=== PATIENT | female | born 1935 | race Caucasian/White ===

== ENCOUNTER 2018-08-04 16:37 | Inpatient (IN) ==
[2018-08-04 17:18] LABS: Basophils # 0.1 K/mcL (0.0-0.2); Basophils % 0.6 %; Eosinophils # 0.2 K/mcL (0.0-0.6); Hematocrit 40.6 % (35.3-44.9); Hemoglobin 13.1 g/dL (11.5-15.4); Immature Granulocytes % 0.7 % (0-4); Lymphocytes # 3.3 K/mcL (0.6-4.6); Lymphocytes % 36.7 %; Mean Corpuscular HGB Conc 32.3 g/dL (31.6-35.5); Mean Corpuscular Hemoglobin 30.2 pg (28.0-33.3); Mean Corpuscular Volume 93.5 fL (83.0-100.0); Mean Platelet Volume 10.4 fL (9.4-12.4); Monocytes # 0.6 K/mcL (0.0-1.3); Monocytes % 6.9 %; Neutrophils # 4.7 K/mcL (1.6-8.9); Platelet Count 413 K/mcL (140-400); Red Blood Count 4.34 M/mcL (3.82-4.97); Red Cell Distribution Width 13.8 % (11.5-14.5); Segmented Neutrophils % 53.1 %
--- NOTE | 2018-08-04 17:27 | Emergency Department Note ---
Disposition Clinical Impression: Third degree heart block, Bradycardia Disposition: Admitted As Inpatient Condition: Fair Referrals: Jose Enrique Collier MD [Primary Care Provider] - Forms: ED Satisfaction Letter General Adult HPI - General Chief complaint: ED Arrhythmia/Palpitations Stated complaint: low heart rate Time Seen by Provider: 08/04/18 16:49 Source: patient, EMS Limitations: no limitations - History of Present Illness Pain Scale: 0 - Related Data Home Medications Medication Instructions Recorded Confirmed ALPRAZolam [Xanax 0.5 MG Tablet] 0.5 tab PO HS PRN 08/04/18 08/04/18 Amitriptyline [Elavil] 25 - 50 mg PO HS 08/04/18 08/04/18 Aspirin Enteric Coated [Aspirin EC] 81 mg PO DAILY 08/04/18 08/04/18 Atenolol [Tenormin] 50 mg PO BID 08/04/18 08/04/18 Biotin 10 mg PO DAILY 08/04/18 08/04/18 Calcium/Magnesium/Zinc 1 tab PO DAILY 08/04/18 08/04/18 [Mrdzjmv-Qatwbhodt-Mcfg Tab] Cyanocobalamin (Vitamin B-12) 1,000 mcg PO DAILY 08/04/18 08/04/18 [Vitamin B12] Furosemide [Lasix] 20 mg PO DAILY PRN 08/04/18 08/04/18 Gabapentin [Neurontin] 600 mg PO HS 08/04/18 08/04/18 HYDROcodone/Acet 5/325 mg [[place] 1 tab PO Q6H PRN 08/04/18 08/04/18 5-325 mg] Potassium Chloride [Klor-Con 10] 10 meq PO DAILY 08/04/18 08/04/18 Simvastatin [Zocor] 20 mg PO HS 08/04/18 08/04/18 hydroCHLOROthiazide 25 mg PO DAILY 08/04/18 08/04/18 [Hydrochlorothiazide] Allergies Allergy/AdvReac Type Severity Reaction Status Date / Time naproxen Allergy Gastrointestinal Verified 10/18/16 13:30 Upset Past Medical History - Past Medical History Medical history: Reports: arthritis, diabetes, hyperlipidemia, hypertension 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 history - Social History Smoking Status: Never smoker Smokeless Tobacco Status: No Alcohol use: Reports: none Drug use: Reports: none Physical Exam - General Limitations: no limitations General appearance: alert, in no apparent distress Course Vital Signs Temperature 98.3 F 08/04/18 16:42 Pulse Rate 31 08/04/18 16:42 Respiratory Rate 16 08/04/18 16:42 Blood Pressure 153/92 08/04/18 16:42 O2 Sat by Pulse Oximetry 100 08/04/18 16:42 Temperature 98.3 F 08/04/18 16:42 Pulse Rate 31 08/04/18 18:00 Respiratory Rate 16 08/04/18 18:00 Blood Pressure 122/76 08/04/18 18:00 O2 Sat by Pulse Oximetry 97 08/04/18 18:00 Oxygen Delivery Oxygen Delivery Room Air Medical Decision Making - Lab Data Result diagrams: 08/04/18 16:45 08/04/18 16:45 Lab Results 08/04/18 08/04/18 Range/Units 16:45 16:45 WBC 8.9 (4.3-11.1) K/mcL RBC 4.34 (3.82-4.97) M/mcL Hgb 13.1 (11.5-15.4) g/dL Hct 40.6 (35.3-44.9) % MCV 93.5 (83.0-100.0) fL MCH 30.2 (28.0-33.3) pg MCHC 32.3 (31.6-35.5) g/dL RDW 13.8 (11.5-14.5) % Plt Count 413 H (140-400) K/mcL MPV 10.4 (9.4-12.4) fL Immature Gran % 0.7 (0-4) % Seg Neutrophils % 53.1 % Lymphocytes % 36.7 % Monocytes % 6.9 % Eosinophils % 2.0 % Basophils % 0.6 % Neutrophils # 4.7 (1.6-8.9) K/mcL Lymphocytes # 3.3 (0.6-4.6) K/mcL Monocytes # 0.6 (0.0-1.3) K/mcL Eosinophils # 0.2 (0.0-0.6) K/mcL Basophils # 0.1 (0.0-0.2) K/mcL Sodium 140 (136-145) mEq/L Potassium 3.6 (3.5-5.1) mEq/L Chloride 103 (98-107) mEq/L Carbon Dioxide 29 (23-29) mEq/L BUN 21 (8-23) mg/dL Creatinine 1.40 H (0.60-1.20) mg/dL Est GFR ( Amer) 44 L (> 60) Est GFR (Non-Af Amer) 36 L (> 60) BUN/Creatinine Ratio 15 (6-26) Glucose 103 (70-105) mg/dL Calculated Osmolality 293 (280-300) Calcium 10.5 H (8.6-10.3) mg/dL Magnesium 2.1 (1.6-2.6) mg/dL Troponin I < 0.03 (< 0.04) ng/mL Critical Care Time Critical Care Time: Yes Total Critical Care Time: 30 Attestation: CC time spent in medical management of severe bradycardia; 3rd degree av block Attestation Statement - Attestation Attestation: I examined this patient and my medical decision-making was reviewed with the Resident Physician. I agree with the documented findings, disposition and treatment plan as described except to the extent set forth below. 83-year-old female in presented to the emergency room for bradycardia. She was being seen by her family doctor for possible ear problems in which she noted her heart rate to be low in the 30s. She was sent to the ER for evaluation. She is asymptomatic other than she said some dizziness the past few days and which she attributed it to her ears. She denies chest pain. No shortness of breath. No vomiting. She denies any history of coronary disease or any cardiac problems. It was found that she was in a third-degree block. Her blood pressures were normal below. We consulted with interventional cardiology. Since she was asymptomatic they are okay with admitting her to the hospitalist and observing her. We have placed her on the pacer pads. Her blood pressures again are normal and she is asymptomatic.
--- NOTE | 2018-08-04 17:34 | Emergency Department Note ---
Disposition Clinical Impression: Third degree heart block, Bradycardia Disposition: Admitted As Inpatient Condition: Fair Referrals: Jose Enrique Collier MD [Primary Care Provider] - Forms: ED Satisfaction Letter General Adult HPI - General Chief complaint: ED Arrhythmia/Palpitations Stated complaint: low heart rate Time Seen by Provider: 08/04/18 16:49 Source: patient, EMS Mode of arrival: ambulatory Limitations: no limitations Nursing Notes Reviewed: Yes Vital Signs Reviewed: Yes - History of Present Illness HPI Narrative: 83-year-old female presents to the emergency department coming from her primary care physician after she went there for looking her ears having ear pain. From the primary care physician andwas very bradycardic so they sent her here for further evaluation. Patient is asymptomatic she says she has had some dizziness off and on for the previous 2 days but not currently having any at this time. Says she only thing she was having was ear pain was worried she had an ear infection. Patient otherwise is healthy. She does take atenolol for blood pressure 500 mg twice a day. Patient otherwise has no complaints. Patient states she has never been told that she has bradycardia. She says that she has been taking her medications rarely did not take any extra. Patient otherwise has no complaints including headaches, blurry vision, neck pain, back pain, chest pain, shortness of breath, abdominal pain, changes in bowel movements, pain with urination, pain or tingling of the arms or legs, denies weakness, fevers, nausea, vomiting Pain Scale: 0 - Related Data Home Medications Medication Instructions Recorded Confirmed ALPRAZolam [Xanax 0.5 MG Tablet] 0.5 tab PO HS PRN 08/04/18 08/04/18 Amitriptyline [Elavil] 25 - 50 mg PO HS 08/04/18 08/04/18 Aspirin Enteric Coated [Aspirin EC] 81 mg PO DAILY 08/04/18 08/04/18 Atenolol [Tenormin] 50 mg PO BID 08/04/18 08/04/18 Biotin 10 mg PO DAILY 08/04/18 08/04/18 Calcium/Magnesium/Zinc 1 tab PO DAILY 08/04/18 08/04/18 [Zbhckov-Fbaublylb-Xgxm Tab] Cyanocobalamin (Vitamin B-12) 1,000 mcg PO DAILY 08/04/18 08/04/18 [Vitamin B12] Furosemide [Lasix] 20 mg PO DAILY PRN 08/04/18 08/04/18 Gabapentin [Neurontin] 600 mg PO HS 08/04/18 08/04/18 HYDROcodone/Acet 5/325 mg [[place] 1 tab PO Q6H PRN 08/04/18 08/04/18 5-325 mg] Potassium Chloride [Klor-Con 10] 10 meq PO DAILY 08/04/18 08/04/18 Simvastatin [Zocor] 20 mg PO HS 08/04/18 08/04/18 hydroCHLOROthiazide 25 mg PO DAILY 08/04/18 08/04/18 [Hydrochlorothiazide] Allergies Allergy/AdvReac Type Severity Reaction Status Date / Time naproxen Allergy Gastrointestinal Verified 10/18/16 13:30 Upset All systems ED: reviewed and negative except as stated. Review of Systems: As Per HPI Past Medical History - Past Medical History Attestation: Yes The following information was validated with the patient. 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 LICENSE CLERK history - Social History Smoking Status: Never smoker Smokeless Tobacco Status: No Alcohol use: Reports: none Drug use: Reports: none Physical Exam - General Limitations: no limitations General appearance: alert, in no apparent distress - Head Head exam: atraumatic, normocephalic, normal inspection - Eye Eye exam: Present: normal appearance, PERRL, EOMI - ENT ENT exam: normal exam, normal oropharynx, mucous membranes moist - Neck Neck exam: Present: normal inspection, full ROM, trachea midline - Chest Chest inspection: Present: normal inspection, symmetric chest wall rise - Respiratory Respiratory exam: Present: normal lung sounds bilaterally - Cardiovascular Cardiovascular exam: Present: normal rhythm, bradycardia, normal heart sounds - Abdominal Exam Abdominal exam: Present: soft, Non-Tender, normal bowel sounds. Absent: tenderness, distention, guarding, rebound, rigidity - Extremities Exam Extremities exam: Present: normal inspection, full ROM. Absent: tenderness, pedal edema - Back Exam Back exam: Present: normal inspection, full ROM. Absent: tenderness, CVA tenderness (R), CVA tenderness (L) - Neurological Exam Neurological exam: Present: alert, oriented X3 - Skin Skin exam: Present: warm, dry, intact, normal color Course Course Narrative: 83-year-old female presents to the emergency department with asymptomatic bradycardia. Will get stat EKG as well as basic labs including CBC, BMP, troponin as well as chest x-ray. Patient is stable at this time. - Consultations Consultation #1: Patient's EKG did show a third-degree block. I consult with the behavioral intervention specialist Dr. Guzman who said if patient is stable there is no intervention to be done now. He recommended stopping the atenolol and if patient becomes hypotensive to give dopamine and to watch the patient closely. An recommended admission. Time: 17:15 Consultation #2: Spoke with the on-call supervisor braiding Dr. Leo who agreed patient does need any intervention at this night did recommend echocardiogram in the morning. As well as keeping patient nothing by mouth as possible defibrillator or pacemaker be placed in the morning. Time: 17:57 Vital Signs Temperature 98.3 F 08/04/18 16:42 Pulse Rate 31 08/04/18 16:42 Respiratory Rate 16 08/04/18 16:42 Blood Pressure 153/92 08/04/18 16:42 O2 Sat by Pulse Oximetry 100 08/04/18 16:42 Temperature 98.3 F 08/04/18 16:42 Pulse Rate 31 08/04/18 18:00 Respiratory Rate 16 08/04/18 18:00 Blood Pressure 122/76 08/04/18 18:00 O2 Sat by Pulse Oximetry 97 08/04/18 18:00 Oxygen Delivery Oxygen Delivery Room Air Medical Decision Making - MDM Narrative Medical decision making narrative: 83-year-old female presented to the emergency department with bradycardia. After getting the EKG she did have a third-degree heart block. Patient was completely asymptomatic she had a normal blood pressure and very stable. Patient states she has infection needs to be here. Physical exam had no acute findings. We did not give any interventions the patient. I mealy called the behavioral intervention specialist Dr. Guzman who said there is nothing that he needs to be now in the catheter lab. He did not feel like we needed pacer. I did consult cardiology and they will see the patient when patient admitted to the floor. Patient is admitted to Dr. Dominguez we will keep the patient nothing by mouth and do an echocardiogram in the morning. All patient's labs are normal and are within normal limits patient had mild acute kidney injury with an elevated creatinine compared to last. Troponin negative. We will continue to watch it at this time. Magnesium was normal. Patient is stable at this time. Admitted Chest X-Ray 08/04/18 17:01 IMPRESSION: Cardiomegaly and chronic interstitial change with no acute finding in the chest. D/ / Zuhair Baker MD / Zuhair Baker MD Interpreting Provider: Zuhair Baker MD - Medical Records Medical records reviewed: Yes I reviewed the patient's medical records. - Lab Data Lab results reviewed: Yes I reviewed the patient's lab results. Result diagrams: 08/04/18 16:45 08/04/18 16:45 Lab Results 08/04/18 08/04/18 Range/Units 16:45 16:45 WBC 8.9 (4.3-11.1) K/mcL RBC 4.34 (3.82-4.97) M/mcL Hgb 13.1 (11.5-15.4) g/dL Hct 40.6 (35.3-44.9) % MCV 93.5 (83.0-100.0) fL MCH 30.2 (28.0-33.3) pg MCHC 32.3 (31.6-35.5) g/dL RDW 13.8 (11.5-14.5) % Plt Count 413 H (140-400) K/mcL MPV 10.4 (9.4-12.4) fL Immature Gran % 0.7 (0-4) % Seg Neutrophils % 53.1 % Lymphocytes % 36.7 % Monocytes % 6.9 % Eosinophils % 2.0 % Basophils % 0.6 % Neutrophils # 4.7 (1.6-8.9) K/mcL Lymphocytes # 3.3 (0.6-4.6) K/mcL Monocytes # 0.6 (0.0-1.3) K/mcL Eosinophils # 0.2 (0.0-0.6) K/mcL Basophils # 0.1 (0.0-0.2) K/mcL Sodium 140 (136-145) mEq/L Potassium 3.6 (3.5-5.1) mEq/L Chloride 103 (98-107) mEq/L Carbon Dioxide 29 (23-29) mEq/L BUN 21 (8-23) mg/dL Creatinine 1.40 H (0.60-1.20) mg/dL Est GFR ( Amer) 44 L (> 60) Est GFR (Non-Af Amer) 36 L (> 60) BUN/Creatinine Ratio 15 (6-26) Glucose 103 (70-105) mg/dL Calculated Osmolality 293 (280-300) Calcium 10.5 H (8.6-10.3) mg/dL Magnesium 2.1 (1.6-2.6) mg/dL Troponin I < 0.03 (< 0.04) ng/mL - Radiology Data Radiology results reviewed: Yes I reviewed the patient's radiology results. - EKG Data EKG #1 EKG attestation: Yes I reviewed and interpreted this EKG. EKG results narrative: EKG done at 1650 review myself and the attending shows third-degree heart block at a rate of 31, QRS 126, QTC 403 leftward axis. There is no acute ST changes no acute T-wave changes no other signs of ischemia. There is a right bundle- branch block and a third-degree AV block. No other blocks. No heartstring, hypertrophy. No WPW/Brugada/HOCM. No old EKG to compare with
[2018-08-04 17:38] LABS: BUN/Creatinine Ratio 15 (6-26); Blood Urea Nitrogen 21 mg/dL (8-23); Calcium 10.5 mg/dL (8.6-10.3); Carbon Dioxide 29 mEq/L (23-29); Chloride 103 mEq/L (98-107); Glucose 103 mg/dL (70-105); Magnesium 2.1 mg/dL (1.6-2.6); Osmolality,Calculated 293 (280-300); Potassium 3.6 mEq/L (3.5-5.1); Sodium 140 mEq/L (136-145); eGFR For Non-African Americans 36 (> 60)
[2018-08-04 17:39] LABS: Troponin I < 0.03 ng/mL (< 0.04)
[2018-08-04] MEDS ORDERED: Naloxone 0.4 MG/ML INJ IVP PRN (18:48)
[2018-08-04] MEDS ORDERED: ALPRAZolam 0.5 MG TABLET PO PRN (18:51)
[2018-08-04] MEDS ORDERED: 0.9 % Sodium Chloride 1,000 ML IVC SCH (19:00)
--- NOTE | 2018-08-04 19:01 | Internal Med History&Physical ---
Date of Encounter: 08/04/18 Time of Encounter: 18:56 Internal Medicine - H&P: HPI Chief complaint: Severe bradycardia Admitted From: Home Plans for Post Hospital Care: Home History of present illness: The patient is an 83-year-old woman. She has been fighting with cold-like symptoms for the last 5 days. It started from nasal congestion and sore throat. Then, she developed coughing and aching in her ears and behind her right eyeball. She visited her primary care physician today morning, complaining of persistent aching in her ears. The examination did not reveal any problems in her ears. When checking her vitals, they found her to be very bradycardic with heart rate at the low 30s. Evaluation in the emergency department revealed third degree AV block with heart rate of 31. This patient has been taking atenolol at 50 mg by mouth twice a day for treatment of high blood pressure. She has recently developed mild renal failure. Her creatinine from today is 1.40; it was 1.04 on 03/02/18. The patient did have some off and on dizziness when doing her daily activities in the last 2 days. Denies chest pain. Denies abdominal pain, nausea and vomiting. She makes good amounts of urine. She has been treated for hypertension, hyperlipidemia and anxiety. She had low back surgery several years ago. She continues to have low back pain with radiation to posterior aspects of her thighs. REVIEW OF SYSTEMS: All 14 organ systems were reviewed by me with the patient. Positive and pertinent negative findings are listed above. The rest of organ systems is negative. PHYSICAL EXAM: Skin: Free of rash and discoloration. Eyes: Sclera is white. There is no discharge from eyes. ENMT: Oral/pharyngeal mucosa is normal in appearance. There is no discharge from nose or ears. Respiratory: Normal breath sounds with no crackles and wheezes bilaterally. CV: Heart is regular with no gallop or murmur. GI: Abdomen is flat and soft with no palpable mass or visceromegaly. : There is no tenderness in patient's flanks bilaterally. Neuro exam: He has good strength in upper and lower extremities. He has normal eye movements. Psychiatric: He has normal affect. His thought process is appropriate to the situation. EKG shows third-degree AV block with heart rate of 31. Her CBC is normal. Her biochemistry panel shows creatinine of 1.40 (1.04 in Danielle of this year). She has sodium of 140 and potassium 3.6. Magnesium is 2.1. Troponin is normal. A/P: Third-degree AV block with bradycardialow 30s. Likely secondary to atenolol on top of recently developed renal failure. Cardiology is consulted. We will continue 24-hour cardiac monitoring. The patient will be nothing by mouth, as she may need a pacemaker. We will give her normal saline with addition of potassium chloride. She has mild hypokalemia. Upper respiratory tract infection. Subsiding. No treatment is needed at this time. Her other problems are mentioned by me above. They seem to be stable/under control. Past Med Surg Social Fam HX - Past Medical History Medical history: arthritis, diabetes, hyperlipidemia, hypertension - Social History Smoking Status: Never smoker Smokeless Tobacco Status: No Alcohol use: none Drug use: none - Family History Mother Living Status: Age at : 74 Hx Family Cardiac Disorders: Yes Internal Medicine - H&P: Meds ALPRAZolam [Xanax 0.5 MG Tablet] 0.5 tab PO HS PRN 08/04/18 [History] Amitriptyline [Elavil] 25 - 50 mg PO HS 08/04/18 [History] Aspirin Enteric Coated [Aspirin EC] 81 mg PO DAILY 08/04/18 [History] Atenolol [Tenormin] 50 mg PO BID 08/04/18 [History] Biotin 10 mg PO DAILY 08/04/18 [History] Calcium/Magnesium/Zinc [Svpgxmc-Voiuwidyz-Ugge Tab] 1 tab PO DAILY 08/04/18 [ History] Cyanocobalamin (Vitamin B-12) [Vitamin B12] 1,000 mcg PO DAILY 08/04/18 [History ] Furosemide [Lasix] 20 mg PO DAILY PRN 08/04/18 [History] Gabapentin [Neurontin] 600 mg PO HS 08/04/18 [History] HYDROcodone/Acet 5/325 mg [[place] 5-325 mg] 1 tab PO Q6H PRN 08/04/18 [History] Potassium Chloride [Klor-Con 10] 10 meq PO DAILY 08/04/18 [History] Simvastatin [Zocor] 20 mg PO HS 08/04/18 [History] hydroCHLOROthiazide [Hydrochlorothiazide] 25 mg PO DAILY 09/26/18 [History] 3 Allergy/AdvReac Type Severity Reaction Status Date / Time naproxen Allergy Gastrointestinal Verified 10/18/16 13:30 Upset - Constitutional Vitals: Temp Pulse Resp BP Pulse Ox 98.3 F 31 16 122/76 97 08/04/18 16:42 08/04/18 18:00 08/04/18 18:00 08/04/18 18:00 08/04/18 18:00 General appearance: Present: A&O X 3, no acute distress, answers questions appropriately Exam: xx Internal Med - H&P Results - Labs CBC & Chem 7: 08/04/18 16:45 08/04/18 16:45 Labs: Short CBC 08/04/18 Range/Units 16:45 WBC 8.9 (4.3-11.1) K/mcL Hgb 13.1 (11.5-15.4) g/dL Hct 40.6 (35.3-44.9) % Plt Count 413 H (140-400) K/mcL Neutrophils # 4.7 (1.6-8.9) K/mcL BMP 08/04/18 16:45 Sodium 140 Potassium 3.6 Chloride 103 Carbon Dioxide 29 BUN 21 Creatinine 1.40 H Glucose 103 Calcium 10.5 H Cardiac Enzymes 08/04/18 Range/Units 16:45 Troponin I < 0.03 (< 0.04) ng/mL - Impressions ITS Impressions Chest X-Ray 08/04/18 17:01 IMPRESSION: Cardiomegaly and chronic interstitial change with no acute finding in the chest. D/ / Zuhair Baker MD / Zuhair Baker MD Interpreting Provider: Zuhair Baker MD - Assessment and plan (1) Third degree heart block Current Visit: Yes Status: Acute (2) ALIDA (acute kidney injury) Current Visit: Yes Status: Acute (3) Hypokalemia Current Visit: Yes Status: Acute (4) HTN (hypertension) Current Visit: Yes Status: Acute Qualifiers: Hypertension type: essential hypertension Qualified Code(s): I10 - Essential (primary) hypertension - Time Spent With Patient Total time spent is greater than 50% in coordination of care (as documented) at patient's floor/unit and/or counseling patient: 25 - 35 minutes - VTE Reasons for not Prescribing Prophylaxis: Treatment not Indicated - Low risk for VTE Deep Vein Thrombosis/Pulmonary Embolism Present on Admission: No
[2018-08-04] MEDS: Gabapentin 300 MG CAPSULE PO SCH (23:07)
[2018-08-04] MEDS: 0.9 % Sodium Chloride w KCl 20 MEQ/1,000 ML MLS IVC SCH (23:08)
[2018-08-05 05:00] LABS: Basophils % 0.5 %; Eosinophils # 0.2 K/mcL (0.0-0.6); Eosinophils % 2.2 %; Hematocrit 36.1 % (35.3-44.9); Hemoglobin 11.8 g/dL (11.5-15.4); Immature Granulocytes % 0.6 % (0-4); Lymphocytes # 2.7 K/mcL (0.6-4.6); Lymphocytes % 34.4 %; Mean Corpuscular HGB Conc 32.7 g/dL (31.6-35.5); Mean Corpuscular Hemoglobin 30.3 pg (28.0-33.3); Mean Corpuscular Volume 92.8 fL (83.0-100.0); Mean Platelet Volume 10.3 fL (9.4-12.4); Monocytes # 0.7 K/mcL (0.0-1.3); Monocytes % 9.1 %; Neutrophils # 4.2 K/mcL (1.6-8.9); Platelet Count 344 K/mcL (140-400); Red Blood Count 3.89 M/mcL (3.82-4.97); Red Cell Distribution Width 13.9 % (11.5-14.5); Segmented Neutrophils % 53.2 %
[2018-08-05 05:13] LABS: BUN/Creatinine Ratio 18 (6-26); Blood Urea Nitrogen 17 mg/dL (8-23); Carbon Dioxide 28 mEq/L (23-29); Chloride 107 mEq/L (98-107); Glucose 90 mg/dL (70-105); Osmolality,Calculated 291 (280-300); Potassium 3.8 mEq/L (3.5-5.1); Sodium 140 mEq/L (136-145); eGFR For Non-African Americans 56 (> 60)
--- NOTE | 2018-08-05 11:05 | Cardiology Consult Note ---
<Shellie Barbour - Last Filed: 08/05/18 12:39> Date of Encounter: 08/05/18 Time of Encounter: 09:00 Assessment and Plan (1) Bradycardia Current Visit: Yes Status: Acute Per cardiology: -ADmitted with bradycardia, 2:1 AV block. -Average HR previous 12 hours noted to be 34. BP stable. Alert and oriented. -Was on atenolol at home, last dose 08/04/18 am. -Also noted, ALIDA. -Agree with holding AV michel blockers. -Will check TTE. -Will check TSH. -Will continue to monitor, at this time, no urgent need for pacemaker. (2) ALIDA (acute kidney injury) Current Visit: Yes Status: Acute Per cardiology: -ALIDA noted on admission, improving. -Management per primary service. Discussion w patient/family: The assessment and plan as outlined above was discussed with the patient and/or family members who expressed understanding and agreement. All questions were answered. Thank you for involving us in the care of your patient. Please call with any questions. Discussed and reviewed with . History of Present Illness Consult date: 08/04/18 Requesting physician: Marbin Lindquist Consult reason: bradycardia Chief complaint: low HR History of present illness: Ms. George is a 83 year old female with a relevant past medical history of HTN, anxiety, HLD who presented to [facility] as recommended by her PCP for low HR. Patient reports for the past week has had a cough, congestion. Patient also reports has not been eating and drinking as well as normal. Patient states she has been trying to drink fluids. Patient reports she went to her PCP yesterday for her cough, cold, ear pain and PCP noted HR low and recommended ER evaluation. Patient denies dizziness, ligthheadedness, syncope, or near syncope. Patient reports on Thursday, was able to clean her entire house and do all her laundry without symptoms. Patient currently alert and oriented, sitting in bed. Denies complaints. Past Med Surg Social Fam HX - Past Medical History Attestation: Yes The following information was validated with the patient. Source: patient, old records reviewed, obtained from family Medical history: arthritis, diabetes, hyperlipidemia, hypertension - Past Surgical History Surgical History: knee replacement, other Additional surgical history: Back surgery, has screws placed in 2012, also has a pessery, was clean on 07/27/18. - Social History Smoking Status: Never smoker Smokeless Tobacco Status: No Alcohol use: none Drug use: none - Family History Mother Living Status: Age at : 74 Hx Family Cardiac Disorders: Yes Medications and Allergies ALPRAZolam [Xanax 0.5 MG Tablet] 0.5 tab PO HS PRN 08/04/18 [History] Amitriptyline [Elavil] 25 - 50 mg PO HS 08/04/18 [History] Aspirin Enteric Coated [Aspirin EC] 81 mg PO DAILY 08/04/18 [History] Atenolol [Tenormin] 50 mg PO BID 08/04/18 [History] Biotin 10 mg PO DAILY 08/04/18 [History] Calcium/Magnesium/Zinc [Xnsiano-Gbcrbhwsj-Ldul Tab] 1 tab PO DAILY 08/04/18 [ History] Cyanocobalamin (Vitamin B-12) [Vitamin B12] 1,000 mcg PO DAILY 08/04/18 [History ] Furosemide [Lasix] 20 mg PO DAILY PRN 08/04/18 [History] Gabapentin [Neurontin] 600 mg PO HS 08/04/18 [History] HYDROcodone/Acet 5/325 mg [[place] 5-325 mg] 1 tab PO Q6H PRN 08/04/18 [History] Potassium Chloride [Klor-Con 10] 10 meq PO DAILY 08/04/18 [History] Simvastatin [Zocor] 20 mg PO HS 08/04/18 [History] hydroCHLOROthiazide [Hydrochlorothiazide] 25 mg PO DAILY 08/04/18 [History] 3 Allergy/AdvReac Type Severity Reaction Status Date / Time naproxen Allergy Gastrointestinal Verified 10/18/16 13:30 Upset All Systems Review: The remainder of the systems were reviewed and are negative - Cardiovascular Cardiovascular: as per HPI, slow heart rate - Respiratory Respiratory: cough Physical Examination Vital Signs Temperature 98.3 F 08/04/18 16:42 Pulse Rate 31 08/04/18 16:42 Respiratory Rate 16 08/04/18 16:42 Blood Pressure 153/92 08/04/18 16:42 O2 Sat by Pulse Oximetry 100 08/04/18 16:42 Temperature 97.6 F 08/05/18 06:58 Pulse Rate 39 08/05/18 06:58 Respiratory Rate 16 09/27/18 06:58 Blood Pressure 153/84 08/05/18 06:58 O2 Sat by Pulse Oximetry 95 08/05/18 06:58 Oxygen Delivery Oxygen Delivery Nasal Cannula General: Conversant, No Apparent Distress HEENT: Atraumatic, Normocephaly, Mucus Membranes Moist Neck: No JVD, Normal carotid pulses Cardiac: Normal S1 and S2, No Murmur, Other (Bradycardic. ) Lungs: Normal Breath Sounds, No Wheeze, Rales, Rhonchi Neuro: Alert and responsive, No focal deficits noted Abdomen: Soft, Non-Tender Skin: No rashes noted on visualized skin Musculoskeletal: No Chest Wall Tenderness Extremities: No Clubbing, No Cyanosis, No Edema, Normal Pulses Results 08/05/18 04:19 08/05/18 04:19 Lab Results Impressions Chest X-Ray 08/04/18 17:01 IMPRESSION: Cardiomegaly and chronic interstitial change with no acute finding in the chest. D/ / Zuhair Baker MD / Zuhair Baker MD Interpreting Provider: Zuhair Baker MD Active Medications Hydrocodone Bitart/Acetaminophen ([place] 5-325 Mg) 1 tab PO Q6H PRN PRN Reason: Pain Stop: 02/03/19 18:52 Alprazolam (Xanax) 0.5 mg PO HS PRN; Protocol PRN Reason: Sleep Stop: 02/03/19 18:52 Amitriptyline HCl (Elavil) 25 mg PO HS DAVIAN Stop: 02/03/19 21:01 Last Admin: 08/04/18 23:07 Dose: 25 mg Aspirin (Aspirin Ec) 81 mg PO DAILY DAVIAN Stop: 02/04/19 09:01 Last Admin: 08/05/18 11:11 Dose: 81 mg Gabapentin (Neurontin) 600 mg PO HS DAVIAN Stop: 02/03/19 21:01 Last Admin: 08/04/18 23:07 Dose: 600 mg Hydrochlorothiazide (Hydrochlorothiazide) 25 mg PO DAILY DAVIAN PRN Reason: Protocol Stop: 02/04/19 09:01 Last Admin: 08/05/18 11:11 Dose: 25 mg Potassium Chloride/Sodium Chloride (Kcl 20 Meq In 0.9% Sodium Chloride) 20 meq in 1,000 mls @ 75 mls/hr IVC .[id number] DAVIAN Stop: 08/05/18 21:54 Last Admin: 08/04/18 23:08 Dose: 75 mls/hr Naloxone HCl (Narcan) 0.4 mg IVP Q2MIN PRN PRN Reason: SEE COMMENTS Stop: 02/03/19 18:49 Simvastatin (Zocor) 20 mg PO HS DAVIAN PRN Reason: Protocol Stop: 02/03/19 21:01 Last Admin: 08/04/18 23:07 Dose: 20 mg Laboratory Tests 08/04/18 08/05/18 08/05/18 16:45 04:19 04:19 Hgb 11.8 Potassium 3.8 Creatinine 1.40 H 0.96 Magnesium 2.1 Troponin I < 0.03 - Imaging and Cardiology Chest Xray: report reviewed Echo: pending - EKG Interpretation EKG results cardiology: personally reviewed (ECG with bradycardia, HR 38, 2:1 AV block.), other (Telemetry reviewed with average HR previous 12 hours noted to be 34.) Consult Discharge Plan - Plan Referrals: Jose Enrique Collier MD [Primary Care Provider] - <Kitty Leo - Last Filed: 08/05/18 16:44> Date of Encounter: 08/05/18 - Attending Attestation Patient was seen and evaluated independently by me. Findings, assessment and plan were discussed at length with patient, questions answered. Agree with nurse practitioner's documentation. Addition as follows, Consulted for CHB. 83 yoCF on longstanding atenolol and amitriptylin with ho HTN. P/w 1 wk URI c/b ALIDA likely due to poor po intake. Asymptomatic CV stand of point. Hypertensive. No JVD, CTA, no M/G/R, no LE edema ECG-Tele: CHB junctional w RBBB-> 2:1 AVB VR high 30s -40s with ALIDA improves on IVF, holding BB and amitriptylin. A: Intermittent CHB and high grade AVB etiology AVN blockers toxicity with ALIDA vs primary degenerative conduction disease P: - c/w IVF and holding BB and amitriptylin - amlodipine for HTN - if AVB fails to resolve after ALIDA resolution and removing AVN toxin, DC-PPM - pending TTE Kitty Leo MD, PhD Assessment and Plan Discussion w patient/family: The assessment and plan as outlined above was discussed with the patient and/or family members who expressed understanding and agreement. All questions were answered. Thank you for involving us in the care of your patient. Please call with any questions. History of Present Illness History of present illness: Ms. George is a 83 year old female All Systems Review: The remainder of the systems were reviewed and are negative Physical Examination Vital Signs, Last 4 Hours Temp Pulse Resp BP Pulse Ox 08/05/18 15:41 97.9 F 40 16 152/54 95 Results 08/05/18 04:19 08/05/18 04:19 Lab Results 08/05/18 08/05/18 04:19 04:19 WBC 7.8 Hgb 11.8 Hct 36.1 Plt Count 344 Sodium 140 Potassium 3.8 Chloride 107 Carbon Dioxide 28 BUN 17 Creatinine 0.96 Glucose 90 Calcium 10.0 TSH 0.876
[2018-08-05] MEDS: Aspirin Enteric Coated 81 MG Tablet PO SCH (11:11)
[2018-08-05] MEDS: hydroCHLOROthiazide 25 MG TABLET PO SCH (11:11)
[2018-08-05 11:38] LABS: Thyroid Stimulating Hormone 0.876 mcIU/mL (0.340-5.600)
[2018-08-05] MEDS: amLODIPine 5 MG TABLET PO SCH (16:15)
[2018-08-05] MEDS: 0.9 % Sodium Chloride w KCl 20 MEQ/1,000 ML MLS IVC SCH (16:16)
[2018-08-05] MEDS ORDERED: Acetaminophen 325 MG TABLET PO PRN (20:07)
[2018-08-05] MEDS ORDERED: Perflutren Lipid Microsphere 1.3 ML in 0.9 % Sodium Chloride 8.7 ML IVP ONE (20:37)
[2018-08-05] MEDS: Gabapentin 300 MG CAPSULE PO SCH (21:17)
--- NOTE | 2018-08-05 21:41 | Internal Med Progress Note ---
Hospitalist Progress Note - Encounter Date of Encounter: 08/05/18 Time of Encounter: 19:00 - Subjective Interval History: SUBJECTIVE: The patient feels pretty good. Denies chest pain. Denies difficulty breathing , coughing and wheezing. She can walk without the dizziness/lightheadedness. She did have dizzy spells, when walking in the last 2 days preceding this admission. OBJECTIVE: Skin: Free of rash and discoloration. ENMT: Oral/pharyngeal mucosa is normal in appearance. Eyes: Sclera is white. There is no discharge from eyes. Respiratory: Normal breath sounds; no crackles or wheezes. CV: Heart is regular; no gallop or murmur. GI: Abdomen is soft and not tender. There is no palpable mass or visceromegaly. Neuro: There is no focal deficits. ASSESSMENT AND PLAN: Severe bradycardia. It was likely symptomatic in the last 2 days preceding this admission. Her EKG from yesterday shows second-degree AV block with 2:1 conduction. Currently, her heart monitor shows sinus bradycardia or slow junctional rhythm - average heart rate of about 40. We discontinued her atenolol and amitriptyline. We will obtain EKG in the morning. We appreciate help from cardiology. Echocardiogram has been pending. TSH is normal. Acute kidney injury/hypokalemia. Resolved with IV normal saline (with supplemental potassium chloride). Hypertension. Under control. We will continue hydrochlorothiazide. - Exam Vitals: Temp Pulse Resp BP Pulse Ox 97.9 F 40 16 152/54 95 08/05/18 15:41 08/05/18 15:41 08/05/18 15:41 08/05/18 15:41 08/05/18 15:41 Exam: xx - Assessment and Plan (1) Bradycardia Current Visit: Yes Status: Acute (2) ALIDA (acute kidney injury) Current Visit: Yes Status: Acute (3) Hypokalemia Current Visit: Yes Status: Acute (4) HTN (hypertension) Current Visit: Yes Status: Acute - Time Spent with Patient Total time spent is greater than 50% in coordination of care (as documented) at patient's floor/unit and/or counseling patient: 25 - 35 minutes Plan of Care Discussed with: patient Internal Medicine: Result - Labs CBC & Chem 7: 08/05/18 04:19 08/05/18 04:19 Labs: Short CBC 08/05/18 Range/Units 04:19 WBC 7.8 (4.3-11.1) K/mcL Hgb 11.8 (11.5-15.4) g/dL Hct 36.1 (35.3-44.9) % Plt Count 344 (140-400) K/mcL Neutrophils # 4.2 (1.6-8.9) K/mcL BMP 08/05/18 04:19 Sodium 140 Potassium 3.8 Chloride 107 Carbon Dioxide 28 BUN 17 Creatinine 0.96 Glucose 90 Calcium 10.0 - VTE Reasons for not Prescribing Prophylaxis: Treatment not Indicated - Low risk for VTE Deep Vein Thrombosis/Pulmonary Embolism Present on Admission: No Consult Discharge Plan - Plan Referrals: Jose Enrique Collier MD [Primary Care Provider] - (4) HTN (hypertension) Qualifiers: Hypertension type: essential hypertension Qualified Code(s): I10 - Essential (primary) hypertension
[2018-08-06] MEDS: hydroCHLOROthiazide 25 MG TABLET PO SCH (08:51)
[2018-08-06] MEDS: amLODIPine 5 MG TABLET PO SCH (08:52)
[2018-08-06] MEDS: Aspirin Enteric Coated 81 MG Tablet PO SCH (08:53)
[2018-08-06] MEDS: *HR* HYDROcodone/Acet 5/325 mg TABLET PO PRN ×3 (08:54→21:07)
[2018-08-06] MEDS ORDERED: ALPRAZolam 0.5 MG TABLET PO PRN (11:03)
--- NOTE | 2018-08-06 13:30 | Cardiology Progress Note ---
Date of Encounter: 08/06/18 Time of Encounter: 13:00 Assessment and Plan (1) Bradycardia Current Visit: Yes Status: Acute Per cardiology: -ADmitted with bradycardia, 2:1 AV block. -Average HR previous 12 hours noted to be 48, SB with intermittent 2:1 AV block. HR improved from previous. Patient asymptomatic. -Was on atenolol at home, last dose 08/04/18 am. -Also noted, ALIDA. -TTE pending. -TSH within normal limits. -Will continue to monitor, at this time, no urgent need for pacemaker. (2) ALIDA (acute kidney injury) Current Visit: Yes Status: Acute Per cardiology: -ALIDA noted on admission, improving. -Management per primary service. Discussion w patient/family: The assessment and plan as outlined above was discussed with the patient and/or family members who expressed understanding and agreement. All questions were answered. Thank you for involving us in the care of your patient. Please call with any questions. Discussed and reviewed with . Subjective Principal diagnosis: ALIDA, bradycardia Interval history: Patient sitting in chair. Denies complaints. Objective Vital Signs, Last 4 Hours Temp Pulse Resp BP Pulse Ox 08/06/18 10:45 97.3 F L 44 16 138/87 95 General: Conversant, No Apparent Distress HEENT: Atraumatic, Normocephaly, Mucus Membranes Moist Neck: No JVD, Normal carotid pulses Cardiac: Normal S1 and S2, No Murmur, Other (Bradycardic. ) Lungs: Normal Breath Sounds, No Wheeze, Rales, Rhonchi Neuro: Alert and responsive, No focal deficits noted Abdomen: Soft, Non-Tender Skin: No rashes noted on visualized skin Musculoskeletal: No Chest Wall Tenderness Extremities: No Clubbing, No Cyanosis, No Edema, Normal Pulses Results 08/05/18 04:19 08/05/18 04:19 Active Medications Acetaminophen (Tylenol) 650 mg PO Q6HR PRN PRN Reason: Pain Stop: 02/04/19 20:08 Last Admin: 08/05/18 20:52 Dose: 650 mg Hydrocodone Bitart/Acetaminophen ([place] 5-325 Mg) 1 tab PO Q6H PRN PRN Reason: Pain Stop: 02/03/19 18:52 Last Admin: 08/06/18 08:54 Dose: 1 tab Alprazolam (Xanax) 0.5 mg PO Q8H PRN; Protocol PRN Reason: Anxiety Stop: 02/03/19 18:52 Last Admin: 08/06/18 12:22 Dose: 0.5 mg Amlodipine Besylate (Norvasc) 5 mg PO DAILY DAVIAN PRN Reason: Protocol Stop: 02/04/19 14:01 Last Admin: 08/06/18 08:52 Dose: 5 mg Aspirin (Aspirin Ec) 81 mg PO DAILY DAVIAN Stop: 02/04/19 09:01 Last Admin: 08/06/18 08:53 Dose: 81 mg Gabapentin (Neurontin) 600 mg PO HS DAVIAN Stop: 02/03/19 21:01 Last Admin: 08/05/18 21:17 Dose: 600 mg Hydrochlorothiazide (Hydrochlorothiazide) 25 mg PO DAILY DAVIAN PRN Reason: Protocol Stop: 02/04/19 09:01 Last Admin: 08/06/18 08:51 Dose: 25 mg Naloxone HCl (Narcan) 0.4 mg IVP Q2MIN PRN PRN Reason: SEE COMMENTS Stop: 02/03/19 18:49 Simvastatin (Zocor) 20 mg PO HS DAVIAN PRN Reason: Protocol Stop: 02/03/19 21:01 Last Admin: 08/05/18 21:17 Dose: 20 mg Laboratory Tests 08/04/18 08/05/18 08/05/18 16:45 04:19 04:19 Hgb 11.8 Creatinine 1.40 H 0.96 TSH 0.876 - Imaging and Cardiology Chest Xray: report reviewed Echo: pending - EKG Interpretation EKG results cardiology: other (Telemetry reviewed with average HR previous 12 hours noted to be 48, SB with intermittent 2:1 AV block.) - VTE Reasons for not Prescribing Prophylaxis: Treatment not Indicated - Low risk for VTE Deep Vein Thrombosis/Pulmonary Embolism Present on Admission: No Consult Discharge Plan - Plan Referrals: Jose Enrique Collier MD [Primary Care Provider] -
[2018-08-06] MEDS: *HR* Heparin 5,000 UNIT/ML VIAL SQ SCH (17:22)
[2018-08-06] MEDS: Oxymetazoline Nasal SPRAY BOTTLE NS SCH (17:42)
[2018-08-06] MEDS: Gabapentin 300 MG CAPSULE PO SCH (20:09)
--- NOTE | 2018-08-06 22:51 | Internal Med Progress Note ---
Hospitalist Progress Note - Encounter Date of Encounter: 08/06/18 Time of Encounter: 19:00 - Subjective Interval History: SUBJECTIVE: She complains of feeling of water in her ears. It is not pain any more. Denies chest pain. She can walk without the dizziness/lightheadedness. She did have dizzy spells, when walking in the last 2 days preceding this admission. OBJECTIVE: Skin: Free of rash and discoloration. ENMT: Oral/pharyngeal mucosa is normal in appearance. Eyes: Sclera is white. There is no discharge from eyes. Respiratory: Normal breath sounds; no crackles or wheezes. CV: Heart is regular; no gallop or murmur. GI: Abdomen is soft and not tender. There is no palpable mass or visceromegaly. Neuro: There is no focal deficits. ASSESSMENT AND PLAN: Severe bradycardia. It was likely symptomatic in the last 2 days preceding this admission. Her telemetry shows sinus bradycardia/second-degree AV block with 2:1 conduction; average heart rate of 50. Her atenolol and amitriptyline are on hold. We appreciate help from cardiology. Her echocardiogram shows normal findings. TSH is normal. Acute kidney injury/hypokalemia. Resolved with IV normal saline (with supplemental potassium chloride). Hypertension. Under control. We will continue hydrochlorothiazide. Increased pressure in ears secondary to obstruction of eustachian tubes. We will try nasal spray Afrin. - Exam Vitals: Temp Pulse Resp BP Pulse Ox 97.7 F 58 18 148/92 97 08/06/18 20:59 08/06/18 20:59 08/06/18 20:59 08/06/18 20:59 08/06/18 20:59 Exam: xx - Assessment and Plan (1) Bradycardia Current Visit: Yes Status: Acute (2) ALIDA (acute kidney injury) Current Visit: Yes Status: Acute (3) Hypokalemia Current Visit: Yes Status: Acute (4) HTN (hypertension) Current Visit: Yes Status: Acute - Time Spent with Patient Total time spent is greater than 50% in coordination of care (as documented) at patient's floor/unit and/or counseling patient: 25 - 35 minutes Plan of Care Discussed with: patient (and family) Internal Medicine: Result - Labs CBC & Chem 7: 08/05/18 04:19 09/27/18 04:19 - VTE Reasons for not Prescribing Prophylaxis: Treatment not Indicated - Low risk for VTE Deep Vein Thrombosis/Pulmonary Embolism Present on Admission: No Consult Discharge Plan - Plan Referrals: Jose Enrique Collier MD [Primary Care Provider] - (4) HTN (hypertension) Qualifiers: Hypertension type: essential hypertension Qualified Code(s): I10 - Essential (primary) hypertension
[2018-08-07] MEDS: *HR* Heparin 5,000 UNIT/ML VIAL SQ SCH ×2 (05:27→17:53)
[2018-08-07] MEDS: Oxymetazoline Nasal SPRAY BOTTLE NS SCH ×2 (05:27→17:50)
[2018-08-07] MEDS: *HR* HYDROcodone/Acet 5/325 mg TABLET PO PRN ×3 (05:28→19:22)
--- NOTE | 2018-08-07 09:54 | Cardiology Progress Note ---
Date of Encounter: 08/07/18 Time of Encounter: 09:52 Assessment and Plan (1) Bradycardia Current Visit: Yes Status: Acute Amitted with bradycardia, 2:1 AV block. Average HR previous 12 hours noted to be 64, SB with intermittent 2:1 AV block. HR improved from previous. Patient asymptomatic. Was on atenolol at home, last dose 08/04/18 am. Also noted, ALIDA. K, Mag, TSH WNL. TTE--LVEF 60-65%. Mild asymmetric hypertrophy of the basal septum. Mild LVOT obstruction, mean gradient 8 mmHg. Mild LVDD. Atypical septal motion consistent with bundle branch block. Mild MR. Discussed and reviewed with Dr. Leo. Since pt continues to have intermittent 2: 1 AV block after 72 hours of BB washout, recommend pt stay for EP/PPM evaluation on Thursday. Discussed with pt and she is agreeable to stay. (2) ALIDA (acute kidney injury) Current Visit: Yes Status: Acute ALIDA noted on admission, resolved. Management per primary service. Discussion w patient/family: The assessment and plan as outlined above was discussed with the patient and/or family members who expressed understanding and agreement. All questions were answered. Thank you for involving us in the care of your patient. Please call with any questions. I will discuss all the above with Dr. Leo and make changes as necessary. Subjective Principal diagnosis: ALIDA, bradycardia Interval history: Pt denies acute complaints this AM. HR has improved, continues to have intermittent 2:1 AV block on telemetry. Objective Vital Signs, Last 4 Hours Temp Pulse Resp BP Pulse Ox 08/07/18 07:23 97.8 F 46 20 145/70 97 Vital Signs Temp Pulse Resp BP Pulse Ox 08/07/18 07:23 97.8 F 46 20 145/70 97 08/07/18 04:51 97.9 F 51 18 136/69 95 08/07/18 00:51 97.7 F 49 18 146/72 94 08/06/18 20:59 97.7 F 58 18 148/92 97 08/06/18 15:38 50 18 111/95 94 08/06/18 10:45 97.3 F L 44 16 138/87 95 Intake and Output 08/06/18 08/07/18 08/07/18 23:59 07:59 15:59 Intake Total 340 / 340 0 / 0 240 / 240 Output Total 200 / 200 700 / 700 Balance 140 / 140 -700 / -700 240 / 240 Intake: Oral 340 / 340 0 / 0 240 / 240 Output: Urine 200 / 200 700 / 700 Other: Meal Lunch Breakfast Percent of Meal Consumed 100% 100% Stool Size Moderate Stool Consistency soft Stool Color Brown # Voids 0 # Bowel Movements 1 Weight 73.3 kg Patient Weight 08/07/18 23:59 Weight 73.3 kg General: Conversant, No Apparent Distress HEENT: Atraumatic, Normocephaly, Mucus Membranes Moist Neck: No JVD, Normal carotid pulses Cardiac: Reg Rate and Rhythm, Normal S1 and S2, No Murmur Lungs: Normal Breath Sounds, No Wheeze, Rales, Rhonchi Neuro: Alert and responsive, No focal deficits noted Abdomen: Soft, Non-Tender Skin: No rashes noted on visualized skin Musculoskeletal: No Chest Wall Tenderness Extremities: No Clubbing, No Cyanosis, No Edema, Normal Pulses Results 08/05/18 04:19 08/05/18 04:19 Impressions Echocardiogram 08/05/18 10:54 Impressions: Sinus bradycardia, bundle branch block. HR 30s-40s. LVEF 60-65%. Normal LV chamber size and function. Mild asymmetric hypertrophy of the basal septum. Mild LVOT obstruction, mean gradient 8 mmHg. Mild left ventricular diastolic dysfunction. Atypical septal motion consistent with bundle branch block. Normal right ventricular structure and function. Mild mitral regurgitation. Unable to estimate RVSP due to lack of TR jet. Left Ventricular Wall Motion: Rest Echo Findings All wall segments showed normal motion. Findings: Study Quality * Technically adequate exam. ECG Findings * Sinus bradycardia, bundle branch block. HR 30s-40s. Left Ventricle * LVEF 60-65%. * Normal LV chamber size and function. * Mild asymmetric hypertrophy of the basal septum. Mild LVOT obstruction, mean gradient 8 mmHg. * Mild left ventricular diastolic dysfunction. * Atypical septal motion consistent with bundle branch block. Right Ventricle * Normal right ventricular structure and function. Left Atrium * Mildly dilated left atrium. Right Atrium * Mildly dilated right atrium. Aortic Valve * Trileaflet aortic valve. * Mildly sclerotic aortic valve leaflets. * No aortic regurgitation. * No aortic stenosis. Mitral Valve * Mild mitral annular calcification * Mild mitral regurgitation. * No mitral stenosis. Tricuspid Valve * Normal tricuspid valve structure and function. * No tricuspid regurgitation. * Unable to estimate RVSP due to lack of TR jet. Pulmonic Valve * Normal pulmonic valve structure and function. * Trace pulmonic regurgitation. Aorta * Normally sized aortic root. Pericardium * The pericardium appears normal. IVC * Normal IVC dimensions and inspiratory collapse. Pulmonary Artery * Normal visualized portions of the main pulmonary artery. Active Medications Acetaminophen (Tylenol) 650 mg PO Q6HR PRN PRN Reason: Pain Stop: 02/04/19 20:08 Last Admin: 08/05/18 20:52 Dose: 650 mg Hydrocodone Bitart/Acetaminophen ([place] 5-325 Mg) 1 tab PO Q6H PRN PRN Reason: Pain Stop: 02/03/19 18:52 Last Admin: 08/07/18 05:28 Dose: 1 tab Alprazolam (Xanax) 0.5 mg PO Q8H PRN; Protocol PRN Reason: Anxiety Stop: 02/03/19 18:52 Last Admin: 08/06/18 12:22 Dose: 0.5 mg Amlodipine Besylate (Norvasc) 5 mg PO DAILY DAVIAN PRN Reason: Protocol Stop: 02/04/19 14:01 Last Admin: 08/06/18 08:52 Dose: 5 mg Aspirin (Aspirin Ec) 81 mg PO DAILY DAVIAN Stop: 02/04/19 09:01 Last Admin: 08/06/18 08:53 Dose: 81 mg Gabapentin (Neurontin) 600 mg PO HS [facility] Stop: 02/03/19 21:01 Last Admin: 08/06/18 20:09 Dose: 600 mg Heparin Sodium (Porcine) (Heparin) 5,000 unit SQ Q12HCO DAVIAN Stop: 02/05/19 18:01 Last Admin: 08/07/18 05:27 Dose: 5,000 unit Hydrochlorothiazide (Hydrochlorothiazide) 25 mg PO DAILY DAVIAN PRN Reason: Protocol Stop: 02/04/19 09:01 Last Admin: 08/06/18 08:51 Dose: 25 mg Naloxone HCl (Narcan) 0.4 mg IVP Q2MIN PRN PRN Reason: SEE COMMENTS Stop: 02/03/19 18:49 Oxymetazoline HCl (Afrin) 2 spray NS Q12HR DAVIAN Stop: 08/09/18 06:01 Last Admin: 08/07/18 05:27 Dose: 2 spray Simvastatin (Zocor) 20 mg PO HS [facility] PRN Reason: Protocol Stop: 02/03/19 21:01 Last Admin: 08/06/18 20:09 Dose: 20 mg - Imaging and Cardiology Echo: report reviewed - EKG Interpretation EKG results cardiology: other (12 hr tele aVG HR 64, SR with intermittent 2:1 AV block.) - VTE Reasons for not Prescribing Prophylaxis: Treatment not Indicated - Low risk for VTE Deep Vein Thrombosis/Pulmonary Embolism Present on Admission: No Consult Discharge Plan - Plan Referrals: Jose Enrique Collier MD [Primary Care Provider] -
[2018-08-07 10:53] LABS: Basophils % 0.5 %; Eosinophils # 0.2 K/mcL (0.0-0.6); Hematocrit 40.4 % (35.3-44.9); Immature Granulocytes % 0.5 % (0-4); Lymphocytes % 32.1 %; Mean Corpuscular HGB Conc 32.2 g/dL (31.6-35.5); Mean Corpuscular Hemoglobin 30.1 pg (28.0-33.3); Mean Corpuscular Volume 93.5 fL (83.0-100.0); Mean Platelet Volume 10.3 fL (9.4-12.4); Monocytes # 0.5 K/mcL (0.0-1.3); Monocytes % 7.5 %; Neutrophils # 3.5 K/mcL (1.6-8.9); Platelet Count 337 K/mcL (140-400); Red Blood Count 4.32 M/mcL (3.82-4.97); Red Cell Distribution Width 13.9 % (11.5-14.5); Segmented Neutrophils % 56.4 %
[2018-08-07] MEDS: amLODIPine 5 MG TABLET PO SCH (11:09)
[2018-08-07] MEDS: Aspirin Enteric Coated 81 MG Tablet PO SCH (11:10)
[2018-08-07] MEDS: hydroCHLOROthiazide 25 MG TABLET PO SCH (11:10)
[2018-08-07 11:14] LABS: BUN/Creatinine Ratio 10 (6-26); Blood Urea Nitrogen 10 mg/dL (8-23); Calcium 10.4 mg/dL (8.6-10.3); Carbon Dioxide 30 mEq/L (23-29); Chloride 105 mEq/L (98-107); Glucose 96 mg/dL (70-105); Osmolality,Calculated 289 (280-300); Potassium 3.8 mEq/L (3.5-5.1); Sodium 140 mEq/L (136-145); eGFR For Non-African Americans 54 (> 60)
--- NOTE | 2018-08-07 18:16 | Internal Med Progress Note ---
Hospitalist Progress Note - Encounter Date of Encounter: 08/07/18 Time of Encounter: 18:15 - Subjective Interval History: SUBJECTIVE: SThe feeling of water in her ears seems to be less pronounced today. It is not painful. She feels like her hearing is somewhat decreased. Denies chest pain. She can walk without dizziness/lightheadedness. She did have dizzy spells, when walking in the last 2 days preceding this admission. OBJECTIVE: Skin: Free of rash and discoloration. ENMT: Oral/pharyngeal mucosa is normal in appearance. Eyes: Sclera is white. There is no discharge from eyes. Respiratory: Normal breath sounds; no crackles or wheezes. CV: Heart is regular; no gallop or murmur. GI: Abdomen is soft and not tender. There is no palpable mass or visceromegaly. Neuro: There is no focal deficits. ASSESSMENT AND PLAN: Severe bradycardia. It was likely symptomatic in the last 2 days preceding this admission. Her telemetry shows sinus bradycardia/second-degree AV block with 2:1 conduction; average heart rate of 50. Her atenolol and amitriptyline are on hold. We appreciate help from cardiology. Her echocardiogram shows normal findings. TSH is normal. The pt is to stay for EP/PPM evaluation on Thursday. Acute kidney injury/hypokalemia. Resolved with IV normal saline (with supplemental potassium chloride). Hypertension. Under control. We will continue hydrochlorothiazide. Increased pressure in ears secondary to obstruction of eustachian tubes. We will try nasal spray Afrin. She may have bilateral fluid in middle ear. I we will do otoscopic examination tomorrow. - Exam Vitals: Temp Pulse Resp BP Pulse Ox 98 F 84 20 142/81 98 08/07/18 17:12 08/07/18 17:12 08/07/18 17:12 08/07/18 17:12 08/07/18 17:12 Exam: xx - Assessment and Plan (1) Bradycardia Current Visit: Yes Status: Acute (2) ALIDA (acute kidney injury) Current Visit: Yes Status: Resolved (3) Hypokalemia Current Visit: Yes Status: Resolved (4) HTN (hypertension) Current Visit: Yes Status: Acute - Time Spent with Patient Total time spent is greater than 50% in coordination of care (as documented) at patient's floor/unit and/or counseling patient: 25 - 35 minutes Plan of Care Discussed with: patient (and family..) Internal Medicine: Result - Labs CBC & Chem 7: 08/07/18 10:24 08/07/18 10:24 Labs: Short CBC 08/07/18 Range/Units 10:24 WBC 6.3 (4.3-11.1) K/mcL Hgb 13.0 (11.5-15.4) g/dL Hct 40.4 (35.3-44.9) % Plt Count 337 (140-400) K/mcL Neutrophils # 3.5 (1.6-8.9) K/mcL BMP 08/07/18 10:24 Sodium 140 Potassium 3.8 Chloride 105 Carbon Dioxide 30 H BUN 10 Creatinine 0.98 Glucose 96 Calcium 10.4 H - VTE Reasons for not Prescribing Prophylaxis: Treatment not Indicated - Low risk for VTE Deep Vein Thrombosis/Pulmonary Embolism Present on Admission: No Consult Discharge Plan - Plan Referrals: Jose Enrique Collier MD [Primary Care Provider] - (4) HTN (hypertension) Qualifiers: Hypertension type: essential hypertension Qualified Code(s): I10 - Essential (primary) hypertension
[2018-08-07] MEDS: Gabapentin 300 MG CAPSULE PO SCH (21:27)
[2018-08-08] MEDS: *HR* HYDROcodone/Acet 5/325 mg TABLET PO PRN ×3 (05:04→18:42)
[2018-08-08] MEDS: Oxymetazoline Nasal SPRAY BOTTLE NS SCH ×2 (05:04→18:36)
[2018-08-08] MEDS: *HR* Heparin 5,000 UNIT/ML VIAL SQ SCH ×2 (05:04→18:36)
[2018-08-08] MEDS: amLODIPine 5 MG TABLET PO SCH (09:50)
[2018-08-08] MEDS: hydroCHLOROthiazide 25 MG TABLET PO SCH (09:50)
[2018-08-08] MEDS: Aspirin Enteric Coated 81 MG Tablet PO SCH (09:50)
--- NOTE | 2018-08-08 09:52 | Cardiology Progress Note ---
Date of Encounter: 08/08/18 Time of Encounter: 09:50 Assessment and Plan (1) Bradycardia Current Visit: Yes Status: Acute Amitted with bradycardia, 2:1 AV block. Average HR previous 12 hours noted to be 76, SB with intermittent 2:1 AV block. HR improved from previous. Patient asymptomatic. Was on atenolol at home, last dose 08/04/18 am. K, Mag, TSH WNL. TTE--LVEF 60-65%. Mild asymmetric hypertrophy of the basal septum. Mild LVOT obstruction, mean gradient 8 mmHg. Mild LVDD. Atypical septal motion consistent with bundle branch block. Mild MR. Discussed and reviewed with Dr. Leo. Since pt continues to have intermittent 2: 1 AV block after >72 hours of BB washout, recommend pt stay for EP/PPM evaluation on Thursday. Discussed with pt and she is agreeable to stay. Discussion w patient/family: The assessment and plan as outlined above was discussed with the patient and/or family members who expressed understanding and agreement. All questions were answered. Thank you for involving us in the care of your patient. Please call with any questions. I will discuss all the above with Dr. Leo and make changes as necessary. Subjective Principal diagnosis: ALIDA, bradycardia Interval history: Pt denies acute complaints this AM. HR has improved, continues to have intermittent 2:1 AV block on telemetry. Objective Vital Signs, Last 4 Hours Temp Pulse Resp BP Pulse Ox 08/08/18 07:19 97.5 F L 58 19 146/68 97 08/08/18 06:11 60 15 138/77 96 Vital Signs Temp Pulse Resp BP Pulse Ox 08/08/18 07:19 97.5 F L 58 19 146/68 97 08/08/18 06:11 60 15 138/77 96 08/07/18 21:00 98.1 F 66 16 112/70 98 08/07/18 17:12 98 F 84 20 142/81 98 08/07/18 11:00 95 08/07/18 10:56 97.6 F 91 21 156/78 95 Intake and Output 08/07/18 08/08/18 08/08/18 23:59 07:59 15:59 Intake Total 1510 / 1510 0 / 0 Output Total 600 / 600 300 / 300 600 / 600 Balance 910 / 910 -300 / -300 -600 / -600 Intake: IV Fluids 1010 / 1010 Oral 500 / 500 0 / 0 Output: Urine 600 / 600 300 / 300 600 / 600 Other: Weight 74 kg Patient Weight 08/08/18 23:59 Weight 74 kg General: Conversant, No Apparent Distress HEENT: Atraumatic, Normocephaly, Mucus Membranes Moist Neck: No JVD, Normal carotid pulses Cardiac: Reg Rate and Rhythm, Normal S1 and S2, No Murmur Lungs: Normal Breath Sounds, No Wheeze, Rales, Rhonchi Neuro: Alert and responsive, No focal deficits noted Abdomen: Soft, Non-Tender Skin: No rashes noted on visualized skin Musculoskeletal: No Chest Wall Tenderness Extremities: No Clubbing, No Cyanosis, No Edema, Normal Pulses Results 08/07/18 10:24 08/07/18 10:24 Lab Results 08/07/18 08/07/18 10:24 10:24 WBC 6.3 Hgb 13.0 Hct 40.4 Plt Count 337 Sodium 140 Potassium 3.8 Chloride 105 Carbon Dioxide 30 H BUN 10 Creatinine 0.98 Glucose 96 Calcium 10.4 H Short CBC 08/07/18 Range/Units 10:24 WBC 6.3 (4.3-11.1) K/mcL Hgb 13.0 (11.5-15.4) g/dL Hct 40.4 (35.3-44.9) % Plt Count 337 (140-400) K/mcL Neutrophils # 3.5 (1.6-8.9) K/mcL BMP 08/07/18 Range/Units 10:24 Sodium 140 (136-145) mEq/L Potassium 3.8 (3.5-5.1) mEq/L Chloride 105 (98-107) mEq/L Carbon Dioxide 30 H (23-29) mEq/L BUN 10 (8-23) mg/dL Creatinine 0.98 (0.60-1.20) mg/dL Glucose 96 (70-105) mg/dL Calcium 10.4 H (8.6-10.3) mg/dL Active Medications Acetaminophen (Tylenol) 650 mg PO Q6HR PRN PRN Reason: Pain Stop: 02/04/19 20:08 Last Admin: 08/05/18 20:52 Dose: 650 mg Hydrocodone Bitart/Acetaminophen ([place] 5-325 Mg) 1 tab PO Q6H PRN PRN Reason: Pain Stop: 02/03/19 18:52 Last Admin: 08/08/18 05:04 Dose: 1 tab Alprazolam (Xanax) 0.5 mg PO Q8H PRN; Protocol PRN Reason: Anxiety Stop: 02/03/19 18:52 Last Admin: 08/06/18 12:22 Dose: 0.5 mg Amlodipine Besylate (Norvasc) 5 mg PO DAILY [facility] PRN Reason: Protocol Stop: 02/04/19 14:01 Last Admin: 08/07/18 11:09 Dose: 5 mg Aspirin (Aspirin Ec) 81 mg PO DAILY [facility] Stop: 02/04/19 09:01 Last Admin: 08/07/18 11:10 Dose: 81 mg Gabapentin (Neurontin) 600 mg PO HS [facility] Stop: 02/03/19 21:01 Last Admin: 08/07/18 21:27 Dose: 600 mg Heparin Sodium (Porcine) (Heparin) 5,000 unit SQ Q12HCO [facility] Stop: 02/05/19 18:01 Last Admin: 08/08/18 05:04 Dose: 5,000 unit Hydrochlorothiazide (Hydrochlorothiazide) 25 mg PO DAILY [facility] PRN Reason: Protocol Stop: 02/04/19 09:01 Last Admin: 08/07/18 11:10 Dose: 25 mg Naloxone HCl (Narcan) 0.4 mg IVP Q2MIN PRN PRN Reason: SEE COMMENTS Stop: 02/03/19 18:49 Oxymetazoline HCl (Afrin) 2 spray NS Q12HR [facility] Stop: 08/09/18 06:01 Last Admin: 08/08/18 05:04 Dose: 2 spray Simvastatin (Zocor) 20 mg PO HS [facility] PRN Reason: Protocol Stop: 02/03/19 21:01 Last Admin: 08/07/18 21:27 Dose: 20 mg - Imaging and Cardiology Echo: report reviewed - EKG Interpretation EKG results cardiology: other (12 hr tele AVG HR 76, intermittent 2:1 AV block) - VTE Reasons for not Prescribing Prophylaxis: Treatment not Indicated - Low risk for VTE Deep Vein Thrombosis/Pulmonary Embolism Present on Admission: No Consult Discharge Plan - Plan Referrals: Jose Enrique Collier MD [Primary Care Provider] -
--- NOTE | 2018-08-08 14:51 | Electrocardiograph Report ---
[place] [address] Test Date: 2018-08-04 Pat Name: Elinor George Department: EXAMC1 Room: 2NE32 Gender: F Computer Designer: : 1935 Requested By: Bill Kuhn Order Number: [id number] Reading MD: Kitty Leo Measurements Intervals [place] Rate: 31 P: KS: QRS: 245 QRSD: 108 T: 18 QT: 563 QTc: 411 Interpretive Statements Complete AV block, junctional rhythm. IRBBB with LAD Poor R wave progression. Nonspecific T wave change. Electronically Signed On 08-08-2018 14:49:31 EDT by Kitty Leo
--- NOTE | 2018-08-08 15:37 | Internal Med Progress Note ---
Hospitalist Progress Note - Encounter Date of Encounter: 08/08/18 Time of Encounter: 15:00 - Subjective Interval History: SUBJECTIVE: The feeling of water in her ears seems to be subsiding slowly. It is not painful. She feels like her hearing is somewhat decreased. She had a popping sounds in her ear is on a couple occasions today. Denies chest pain. She can walk without dizziness/lightheadedness. She did have dizzy spells, when walking in the last 2 days preceding this admission. OBJECTIVE: Skin: Free of rash and discoloration. ENMT: Oral/pharyngeal mucosa is normal in appearance. Eyes: Sclera is white. There is no discharge from eyes. Respiratory: Normal breath sounds; no crackles or wheezes. CV: Heart is regular; no gallop or murmur. GI: Abdomen is soft and not tender. There is no palpable mass or visceromegaly. Neuro: There is no focal deficits. ASSESSMENT AND PLAN: Severe bradycardia. It was likely symptomatic in the last 2 days preceding this admission. Her telemetry shows sinus bradycardia/second-degree AV block with 2:1 conduction; average heart rate of 50. Her atenolol and amitriptyline are on hold. We appreciate help from cardiology. Her echocardiogram shows normal findings. TSH is normal. The pt is to stay for EP/PPM evaluation on Thursday. Acute kidney injury/hypokalemia. Resolved with IV normal saline (with supplemental potassium chloride). Hypertension. Under control. We will continue hydrochlorothiazide. Increased pressure in ears secondary to obstruction of eustachian tubes. Improving. We will continue nasal spray Afrin. I did otoscopic examination today. It was basically normal exam. - Exam Vitals: Temp Pulse Resp BP Pulse Ox 97.9 F 61 20 128/92 93 08/08/18 11:27 08/08/18 11:27 08/08/18 11:27 08/08/18 11:27 08/08/18 11:27 Exam: xx - Assessment and Plan (1) Bradycardia Current Visit: Yes Status: Acute (2) ALIDA (acute kidney injury) Current Visit: Yes Status: Resolved (3) Hypokalemia Current Visit: Yes Status: Resolved (4) HTN (hypertension) Current Visit: Yes Status: Acute - Time Spent with Patient Total time spent is greater than 50% in coordination of care (as documented) at patient's floor/unit and/or counseling patient: 25 - 35 minutes Plan of Care Discussed with: patient Internal Medicine: Result - Labs CBC & Chem 7: 08/07/18 10:24 08/07/18 10:24 - VTE Reasons for not Prescribing Prophylaxis: Treatment not Indicated - Low risk for VTE Deep Vein Thrombosis/Pulmonary Embolism Present on Admission: No Consult Discharge Plan - Plan Referrals: Jose Enrique Collier MD [Primary Care Provider] - (4) HTN (hypertension) Qualifiers: Hypertension type: essential hypertension Qualified Code(s): I10 - Essential (primary) hypertension
[2018-08-08] MEDS ORDERED: ALPRAZolam 0.5 MG TABLET PO PRN (17:42)
[2018-08-08] MEDS: ALPRAZolam 0.5 MG TABLET PO SCH (21:06)
[2018-08-08] MEDS: Gabapentin 300 MG CAPSULE PO SCH (21:07)
--- NOTE | 2018-08-08 21:36 | Electrocardiograph Report ---
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
[2018-08-09] MEDS: Oxymetazoline Nasal SPRAY BOTTLE NS SCH (06:17)
[2018-08-09] MEDS: *HR* Heparin 5,000 UNIT/ML VIAL SQ SCH ×2 (06:17→17:22)
[2018-08-09] MEDS: hydroCHLOROthiazide 25 MG TABLET PO SCH (10:10)
[2018-08-09] MEDS: Aspirin Enteric Coated 81 MG Tablet PO SCH (10:11)
[2018-08-09] MEDS: *HR* HYDROcodone/Acet 5/325 mg TABLET PO PRN ×2 (10:11→16:26)
[2018-08-09] MEDS: amLODIPine 5 MG TABLET PO SCH (10:11)
--- NOTE | 2018-08-09 11:09 | Electrophysiology Consult Note ---
<Arnoldo Holman R - Last Filed: 08/09/18 11:07> Date of Encounter: 08/09/18 Time of Encounter: 11:07 Assessment and Plan (2) Bradycardia Status: Acute Amitted with bradycardia, 2:1 AV block. Average HR previous 12 hours noted to be 48, Wenckebach. Patient asymptomatic. Also with brief runs of tachycardia--appears sinus tach vs atrial tach. Was on atenolol at home, last dose 08/04/18 am. K, Mag, TSH WNL. TTE--LVEF 60-65%. Mild asymmetric hypertrophy of the basal septum. Mild LVOT obstruction, mean gradient 8 mmHg. Mild LVDD. Atypical septal motion consistent with bundle branch block. Mild MR. Discussed and reviewed with Dr. Anthony Quintanilla. No urgent need for PPM. Will await evaluation by Dr. Anthony Quintanilla today and determine final plan. Discussion w patient/family: The assessment and plan as outlined above was discussed with the patient and/or family members who expressed understanding and agreement. All questions were answered. Thank you for involving us in the care of your patient. Please call with any questions. I will discuss all the above with Dr. Anthony Quintanilla and make changes as necessary. History of Present Illness Consult date: 08/09/18 Consult reason: AV block History of present illness: Ms. George is a 83 year old female with a relevant past medical history of HTN, anxiety, HLD who presented to [facility] as recommended by her PCP for low HR. Patient reports for the past week has had a cough, congestion. Patient also reports has not been eating and drinking as well as normal. Patient states she has been trying to drink fluids. Patient reports she went to her for her cough, cold, ear pain and PCP noted HR low and recommended ER evaluation. Patient denies dizziness, ligthheadedness, syncope, or near syncope. Patient reports on Thursday, was able to clean her entire house and do all her laundry without symptoms. Pt was on Atenolol 50mg BID, last dose 08/04 AM. EP consulted for continued AV block to evaluate for PPM. TTE EF preserved. Past Med Surg Social Fam HX - Past Medical History Medical history: arthritis, diabetes, hyperlipidemia, hypertension - Past Surgical History Surgical History: knee replacement, other Additional surgical history: Back surgery, has screws placed in 2012, also has a pessery, was clean on 07/27/18. - Social History Smoking Status: Never smoker Smokeless Tobacco Status: No Alcohol use: none Drug use: none - Family History Mother Living Status: Age at : 74 Hx Family Cardiac Disorders: Yes Medications and Allergies ALPRAZolam [Xanax 0.5 MG Tablet] 0.5 tab PO HS PRN 08/04/18 [History] Amitriptyline [Elavil] 25 - 50 mg PO HS 08/04/18 [History] Aspirin Enteric Coated [Aspirin EC] 81 mg PO DAILY 08/04/18 [History] Biotin 10 mg PO DAILY 08/04/18 [History] Calcium/Magnesium/Zinc [Sopjxbu-Uxqbwbfot-Qnxr Tab] 1 tab PO DAILY 08/04/18 [ History] Cyanocobalamin (Vitamin B-12) [Vitamin B12] 1,000 mcg PO DAILY 08/04/18 [History ] Furosemide [Lasix] 20 mg PO DAILY PRN 08/04/18 [History] Gabapentin [Neurontin] 600 mg PO HS 08/04/18 [History] HYDROcodone/Acet 5/325 mg [[place] 5-325 mg] 1 tab PO Q6H PRN 08/04/18 [History] Potassium Chloride [Klor-Con 10] 10 meq PO DAILY 08/04/18 [History] Simvastatin [Zocor] 20 mg PO HS 08/04/18 [History] hydroCHLOROthiazide [Hydrochlorothiazide] 25 mg PO DAILY 08/04/18 [History] Atenolol [Tenormin] 25 mg PO DAILY 30 Days #30 tablet 08/11/18 [Rx] amLODIPine [Norvasc] 5 mg PO DAILY 30 Days #30 tablet 08/11/18 [Rx] 3 Allergy/AdvReac Type Severity Reaction Status Date / Time naproxen Allergy Gastrointestinal Verified 10/18/16 13:30 Upset All Systems Review: The remainder of the systems were reviewed and are negative - Cardiovascular Cardiovascular: dyspnea on exertion - Respiratory Respiratory: cough, dyspnea Physical Examination Vital Signs, Last 4 Hours Temp Pulse Resp BP Pulse Ox 08/09/18 07:18 98.1 F 59 18 159/80 95 Vital Signs Temp Pulse Resp BP Pulse Ox 08/09/18 07:18 98.1 F 59 18 159/80 95 08/09/18 04:20 57 14 141/92 96 08/08/18 20:17 98.5 F 56 15 154/67 95 08/08/18 19:37 95 08/08/18 16:17 97.7 F 56 19 155/85 98 08/08/18 11:27 97.9 F 61 20 128/92 93 Intake and Output 08/08/18 08/09/18 08/09/18 23:59 07:59 15:59 Output Total 300 / 300 0 / 0 Balance -300 / -300 0 / 0 Output: Urine 300 / 300 0 / 0 Other: Weight 74.2 kg Patient Weight 08/09/18 23:59 Weight 74.2 kg General: Conversant, No Apparent Distress HEENT: Atraumatic, Normocephaly, Mucus Membranes Moist Neck: No JVD, Normal carotid pulses Cardiac: Other (irregular) Lungs: Normal Breath Sounds, No Wheeze, Rales, Rhonchi Neuro: Alert and responsive, No focal deficits noted Abdomen: Soft, Non-Tender Skin: No rashes noted on visualized skin Musculoskeletal: No Chest Wall Tenderness Extremities: No Clubbing, No Cyanosis, No Edema, Normal Pulses Results 08/07/18 10:24 08/07/18 10:24 Active Medications Acetaminophen (Tylenol) 650 mg PO Q6HR PRN PRN Reason: Pain Stop: 02/04/19 20:08 Last Admin: 08/05/18 20:52 Dose: 650 mg Hydrocodone Bitart/Acetaminophen ([place] 5-325 Mg) 1 tab PO Q6H PRN PRN Reason: Pain Stop: 02/03/19 18:52 Last Admin: 08/09/18 10:11 Dose: 1 tab Alprazolam (Xanax) 0.5 mg PO BID [facility] PRN Reason: Protocol Stop: 02/07/19 21:01 Last Admin: 08/08/18 21:06 Dose: 0.5 mg Alprazolam (Xanax) 0.5 mg PO Q6HR PRN; Protocol PRN Reason: Anxiety Stop: 02/05/19 11:04 Amlodipine Besylate (Norvasc) 5 mg PO DAILY [facility] PRN Reason: Protocol Stop: 02/04/19 14:01 Last Admin: 08/09/18 10:11 Dose: 5 mg Aspirin (Aspirin Ec) 81 mg PO DAILY [facility] Stop: 02/04/19 09:01 Last Admin: 08/09/18 10:11 Dose: 81 mg Gabapentin (Neurontin) 600 mg PO HS [facility]IAN Stop: 02/03/19 21:01 Last Admin: 08/08/18 21:07 Dose: 600 mg Heparin Sodium (Porcine) (Heparin) 5,000 unit SQ Q12HCO [facility]IAN Stop: 02/05/19 18:01 Last Admin: 08/09/18 06:17 Dose: 5,000 unit Hydrochlorothiazide (Hydrochlorothiazide) 25 mg PO DAILY [facility] PRN Reason: Protocol Stop: 02/04/19 09:01 Last Admin: 08/09/18 10:10 Dose: 25 mg Naloxone HCl (Narcan) 0.4 mg IVP Q2MIN PRN PRN Reason: SEE COMMENTS Stop: 02/03/19 18:49 Simvastatin (Zocor) 20 mg PO HS [facility]IAN PRN Reason: Protocol Stop: 02/03/19 21:01 Last Admin: 08/08/18 21:06 Dose: 20 mg - Imaging and Cardiology Echo: report reviewed - EKG Interpretation EKG results cardiology: personally reviewed, other (12 hr tele AVG HR 48, nelida) Consult Discharge Plan - Plan Instructions: Pacemaker (DC), Pacemaker (GEN) Additional Instructions: ACTIVITY: Moderate activity for the next 7 days. No lifting more than 5 pounds ( gallon of milk) for 4-6 weeks. Avoid lifting your arm on the same side as the device for 4 weeks. BATHING /SHOWERING: Do not remove the large bandage over the site for 2 days. Do not allow the device to get wet for 7-10 days. You may bathe/shower, but do not use soap and water on the site. When bathing, keep the site dry by covering with Saran wrap or a towel. WOUND CARE: The white steri-strips will start to peel away and come off after 14 days, or your doctor will remove them after [address] into or on top of the incision. Do not use cotton swabs. Do not use any antibiotic ointment or Vitamin E on the site. REMINDERS: You may use electrical devices, such as, microwaves, hair dryers, electric razors, electric blankets, etc. as long as they are in good condition and kept 6 -8 inches away from the device. It is recommended to use cell phones on the opposite side of your device. Notify security personnel at the airport that you have a device before you go through airport security screening. When at places with security monitors, such as a grocery store, do not linger near these monitors. It is fine to walk past them in a normal manner. Refer to your owners manual for more specific directions. CARRY YOUR PACEMAKER/ICD CARD WITH YOU AT ALL TIMES Return to work as instructed per physician Resume driving as instructed per physician Keep all scheduled follow up appointments Resume medications as instructed Contact [facility] ( ) if: You develop excessive bleeding from insertion or wound site not controlled by applying pressure You develop a fever greater than 101 degrees Fahrenheit Your incision becomes reddened at or around the site Your incision develops yellowish or greenish drainage or development of white pimple-like bumps You experience excessive pain You develop swelling in your ankles You experience muscle switching You develop excessive hiccupping If you experience chest pain, shortness of breath, dizziness, or extreme tiredness, stop the activity and rest. Please notify [facility] office if you experience any of these symptoms and they are not relieved by rest please call 911! Referrals: Jose Enrique Collier MD [Primary Care Provider] - 08/18/18 9:15 am Prescriptions: amLODIPine [Norvasc] 5 mg PO DAILY 30 Days #30 tablet Atenolol [Tenormin] 25 mg PO DAILY 30 Days #30 tablet <Anthony Quintanilla - Last Filed: 08/12/18 15:56> Date of Encounter: 08/12/18 - Attending Attestation I have personally performed a face to face evaluation on this patient. I have reviewed and agree with the care plan. History and Exam by me shows: Persistent wenkebach with symptoms. Pacemaker recommended. Assessment and Plan Discussion w patient/family: The assessment and plan as outlined above was discussed with the patient and/or family members who expressed understanding and agreement. All questions were answered. Thank you for involving us in the care of your patient. Please call with any questions. History of Present Illness History of present illness: Ms. George is a 83 year old female All Systems Review: The remainder of the systems were reviewed and are negative Results 08/10/18 07:32 08/10/18 07:32
[2018-08-09] MEDS: ALPRAZolam 0.5 MG TABLET PO SCH ×2 (11:28→21:10)
--- NOTE | 2018-08-09 13:57 | Electrocardiograph Report ---
[address] [place], [place] [address] Test Date: 2018-08-06 Pat Name: Elinor George Department: 111 Room: 2NE32 Gender: Avp: : 1935 Requested By: Bill Kuhn Order Number: [id number] Reading MD: Edinson Garrett Measurements Intervals [place] Rate: 50 P: 75 AR: 160 QRS: -33 QRSD: 145 T: 87 QT: 481 QTc: 456 Interpretive Statements Sinus bradycardia Mobitz II AV block MARKED LEFT AXIS DEVIATION LEFT BUNDLE BRANCH BLOCK Electronically Signed On 08-09-2018 13:55:06 EDT by Edinson Garrett
[2018-08-09] MEDS: Gabapentin 300 MG CAPSULE PO SCH (21:10)
--- NOTE | 2018-08-09 23:44 | Internal Med Progress Note ---
Hospitalist Progress Note - Encounter Date of Encounter: 08/09/18 Time of Encounter: 19:00 - Subjective Interval History: SUBJECTIVE: Denies chest pain. She can walk without dizziness/lightheadedness. She did have dizzy spells, when walking in the last 2 days preceding this admission. Her pressure/pain in her years is nearly gone. She has normal hearing today. OBJECTIVE: Skin: Free of rash and discoloration. ENMT: Oral/pharyngeal mucosa is normal in appearance. Eyes: Sclera is white. There is no discharge from eyes. Respiratory: Normal breath sounds; no crackles or wheezes. CV: Heart is regular; no gallop or murmur. GI: Abdomen is soft and not tender. There is no palpable mass or visceromegaly. Neuro: There is no focal deficits. ASSESSMENT AND PLAN: Severe bradycardia. It was likely symptomatic in the last 2 days preceding this admission. Her telemetry shows sinus bradycardia/second-degree AV block with 2:1 conduction; average heart rate of 50. Her atenolol and amitriptyline are on hold. We appreciate help from cardiology. Her echocardiogram shows normal findings. TSH is normal. The patient was evaluated by EP/PPM. Then, Dr. Quintanilla made the decision to insert a pacemaker tomorrow. Acute kidney injury/hypokalemia. Resolved with IV normal saline (with supplemental potassium chloride). Hypertension. Mildly elevated. We will continue amlodipine and hydrochlorothiazide. We are adding low-dose lisinopril today. Increased pressure in ears secondary to obstruction of eustachian tubes. Basically subsided after using Afrin nasal spray. - Exam Vitals: Temp Pulse Resp BP Pulse Ox 98.2 F 61 17 125/74 97 08/09/18 19:17 08/09/18 19:17 08/09/18 14:54 08/09/18 19:17 08/09/18 22:00 Exam: xx - Assessment and Plan (1) Bradycardia Current Visit: Yes Status: Acute (2) ALIDA (acute kidney injury) Current Visit: Yes Status: Resolved (3) Hypokalemia Current Visit: Yes Status: Resolved (4) HTN (hypertension) Current Visit: Yes Status: Acute - Time Spent with Patient Total time spent is greater than 50% in coordination of care (as documented) at patient's floor/unit and/or counseling patient: Internal Medicine: Result - Labs CBC & Chem 7: 08/07/18 10:24 08/07/18 10:24 - VTE Reasons for not Prescribing Prophylaxis: Treatment not Indicated - Low risk for VTE Deep Vein Thrombosis/Pulmonary Embolism Present on Admission: No Consult Discharge Plan - Plan Referrals: Jose Enrique Collier MD [Primary Care Provider] - (4) HTN (hypertension) Qualifiers: Hypertension type: essential hypertension Qualified Code(s): I10 - Essential (primary) hypertension
[2018-08-10] MEDS: *HR* Heparin 5,000 UNIT/ML VIAL SQ SCH ×2 (05:42→17:41)
[2018-08-10] MEDS ORDERED: CeFAZolin Syr 2,000MG/20 ML 2,000 MG/20 ML SYRINGE IVPB ONE (07:57)
[2018-08-10 08:24] LABS: BUN/Creatinine Ratio 20 (6-26); Blood Urea Nitrogen 20 mg/dL (8-23); Calcium 10.2 mg/dL (8.6-10.3); Carbon Dioxide 29 mEq/L (23-29); Chloride 106 mEq/L (98-107); Glucose 88 mg/dL (70-105); Osmolality,Calculated 290 (280-300); Potassium 4.2 mEq/L (3.5-5.1); Sodium 139 mEq/L (136-145); eGFR For Non-African Americans 54 (> 60)
[2018-08-10 08:40] LABS: Basophils # 0.1 K/mcL (0.0-0.2); Basophils % 0.7 %; Eosinophils # 0.2 K/mcL (0.0-0.6); Eosinophils % 2.2 %; Hematocrit 37.1 % (35.3-44.9); Immature Granulocytes % 0.3 % (0-4); Lymphocytes # 2.3 K/mcL (0.6-4.6); Lymphocytes % 33.9 %; Mean Corpuscular HGB Conc 32.3 g/dL (31.6-35.5); Mean Corpuscular Hemoglobin 30.1 pg (28.0-33.3); Mean Platelet Volume 10.8 fL (9.4-12.4); Monocytes # 0.6 K/mcL (0.0-1.3); Monocytes % 9.1 %; Neutrophils # 3.7 K/mcL (1.6-8.9); Platelet Count 299 K/mcL (140-400); Red Blood Count 3.99 M/mcL (3.82-4.97); Red Cell Distribution Width 14.1 % (11.5-14.5); Segmented Neutrophils % 53.8 %
[2018-08-10] MEDS: hydroCHLOROthiazide 25 MG TABLET PO SCH (09:36)
[2018-08-10] MEDS: ALPRAZolam 0.5 MG TABLET PO SCH ×2 (09:36→20:14)
[2018-08-10] MEDS: amLODIPine 5 MG TABLET PO SCH (09:36)
[2018-08-10] MEDS: Aspirin Enteric Coated 81 MG Tablet PO SCH (09:36)
--- NOTE | 2018-08-10 09:36 | Event Note ---
Date of Encounter: 08/10/18 Time of Encounter: 09:34 - Cardiology Event Note Discussed and reviewed with Dr. Anthony Quintanilla. Plan for PPM today for AV block. R/ B/A discussed and pt agrees to proceed.
[2018-08-10] MEDS ORDERED: *HR* Midazolam HCl 2 MG/2 ML VIAL ONE (12:27)
[2018-08-10] MEDS ORDERED: 0.9 % Sodium Chloride 1,000 ML ONE (12:27)
[2018-08-10] MEDS ORDERED: *HR* FentaNYL (PF) 100 MCG/2 ML VIAL ONE (12:27)
[2018-08-10] MEDS ORDERED: 0.9 % Sodium Chloride 500 ML ONE (12:32)
[2018-08-10] MEDS ORDERED: Water for inj. (sterile) 10 ML IV ONE (12:32)
--- NOTE | 2018-08-10 12:39 | Pre-Sedation Evaluation ---
Pre-sedation evaluation - Pre-sedation checklist Date of procedure: 08/10/18 Procedure: Cardiac Pacemaker Placement Recent Vitals: Last Vital Signs Temp 97.9 F 08/10/18 11:17 Pulse 54 08/10/18 11:17 Resp 16 08/10/18 11:17 BP 125/44 08/10/18 11:17 Pulse Ox 97 08/10/18 11:17 H&P (including ROS) documented in medical record: Yes Previous reaction to sedatives/anesthetics: No Dietary Status: NPO after Midnight Airway Assessment: Patient can open mouth completely, TMJ function normal, Micrognathia (under-bite, receding chin) absent Dentition: No loose teeth or bridges, dentures removed Possible difficult airway: No ASA Classification *see protocol: CLASS II-Mild systemic disease Plan of Care: Pt appropriate candidate for procedure/moderate/conscious sedation , Risks/benefits of procedure/sedation discussed w/ patient/family Cardiac Registry (Cardio Only) - Functional Capacity - Clincal Frailty Scale
--- NOTE | 2018-08-10 12:49 | Internal Med Progress Note ---
Hospitalist Progress Note - Encounter Date of Encounter: 08/10/18 Time of Encounter: 12:49 - Subjective Interval History: Patient seen and examined this afternoon after placement of pacemaker. Patient tolerated procedure well. currently denies any symptoms. Feeling well. - Exam Vitals: Temp Pulse Resp BP Pulse Ox 97.9 F 54 16 125/44 97 08/10/18 11:17 08/10/18 11:17 08/10/18 11:17 08/10/18 11:17 08/10/18 11:17 Exam: Gen: Alert, awake, in no acute distress. Obese Respiratory exam: CTAB. no accessory muscle use, rales, rhonchi, wheezes Cardiovascular exam: RRR, +S1, +S2. no murmur, gallop, rubs. Dressing in place on left chest with recent PPM placement and has sling. GI/Abdominal exam: Non-tender, Non-distended, normal bowel sounds, soft, no peritoneal signs. Extremities exam: full ROM, no pedal edema, warm, pulses palpable and symmetrical in both Upper and lower extremities. no calf tenderness, cyanotic Neurological exam: CN II-XII intact, AO X3, no focal deficits. Skin exam: No skin rash, ulcer, purpura or ecchymosis. - Assessment and Plan (1) Bradycardia Current Visit: Yes Status: Acute (2) ALIDA (acute kidney injury) Current Visit: Yes Status: Resolved (3) HTN (hypertension) Current Visit: Yes Status: Acute (4) Hypokalemia Current Visit: Yes Status: Resolved - Summary of Assessment and Plan Summary of Assessment and Plan: Severe bradycardia - It was likely symptomatic in the last 2 days preceding admission. Telemetry showed sinus bradycardia/second-degree AV block. - Electrolytes and TSH normal - atenolol and amitriptyline are on hold. Will resume BB per cardio. Her echocardiogram shows EF of 60-65. - s/p PPM placement. - cardiology recommendation appreciated. Acute kidney injury/hypokalemia - Resolved with IV normal saline Hypertension. - Stable. - Continue amlodipine and hydrochlorothiazide. Started on low-dose lisinopril yesterday.. DVT ppx - Heparin sc - Time Spent with Patient Total time spent is greater than 50% in coordination of care (as documented) at patient's floor/unit and/or counseling patient: Internal Medicine: Result - Labs CBC & Chem 7: 08/10/18 07:32 08/10/18 07:32 Labs: Short CBC 08/10/18 Range/Units 07:32 WBC 6.8 (4.3-11.1) K/mcL Hgb 12.0 (11.5-15.4) g/dL Hct 37.1 (35.3-44.9) % Plt Count 299 (140-400) K/mcL Neutrophils # 3.7 (1.6-8.9) K/mcL BMP 08/10/18 07:32 Sodium 139 Potassium 4.2 Chloride 106 Carbon Dioxide 29 BUN 20 Creatinine 0.98 Glucose 88 Calcium 10.2 - VTE Reasons for not Prescribing Prophylaxis: Treatment not Indicated - Low risk for VTE Deep Vein Thrombosis/Pulmonary Embolism Present on Admission: No Consult Discharge Plan - Plan Referrals: Jose Enrique Collier MD [Primary Care Provider] - (3) HTN (hypertension) Qualifiers: Hypertension type: essential hypertension Qualified Code(s): I10 - Essential (primary) hypertension
[2018-08-10] MEDS ORDERED: ISOVUE-370 200 ML INFUS..BTL IV ONE (13:10)
[2018-08-10] MEDS: *HR* HYDROcodone/Acet 5/325 mg TABLET PO PRN (17:46)
[2018-08-10] MEDS: Gabapentin 300 MG CAPSULE PO SCH (20:14)
[2018-08-11] MEDS: *HR* Heparin 5,000 UNIT/ML VIAL SQ SCH (05:11)
[2018-08-11] MEDS: amLODIPine 5 MG TABLET PO SCH (10:58)
[2018-08-11] MEDS: ALPRAZolam 0.5 MG TABLET PO SCH (10:59)
[2018-08-11] MEDS: Aspirin Enteric Coated 81 MG Tablet PO SCH (10:59)
[2018-08-11] MEDS: hydroCHLOROthiazide 25 MG TABLET PO SCH (10:59)
[2018-08-11 11:03] VITALS: BP 116/79
--- NOTE | 2018-08-11 11:28 | Electrophysiology ProgressNote ---
Date of Encounter: 08/11/18 Time of Encounter: 11:26 Assessment and Plan (1) S/P cardiac pacemaker procedure Current Visit: Yes Status: Acute S/P PPM insertion yesterday for bradycardia and AV block. Device site healing well. Steri strips intact. No active bleeding, hematoma or ecchymosis. Restrictions discussed. Device check okay. CXR mild pulmonary edema, no pneumothorax. Pt euvolemic on exam, but has been coughing. Will add low dose PO Lasix 20mg daily given CXR findings. TTE EF preserved. Now that pt is s/p PPM, will add back BB. Intermittent episodes of atrial/sinus tach on tele. Was on Atenolol 50mg BID at home. BP currently low normal, so will add Atenolol 25mg daily and stop Lisinopril. Cardiology/EP signing off. Reconsult PRN. Will coordinate outpt follow-up in 7- 10 days for wound check, 4-6 weeks device check and in [address] Anthony Quintanilla. (2) Bradycardia Current Visit: Yes Status: Acute Amitted with bradycardia, 2:1 AV block, Wenckebach. TTE--LVEF 60-65%. Mild asymmetric hypertrophy of the basal septum. Mild LVOT obstruction, mean gradient 8 mmHg. Mild LVDD. Atypical septal motion consistent with bundle branch block. Mild MR. S/P PPM insertion yesterday. As above. Discussion w patient/family: The assessment and plan as outlined above was discussed with the patient and/or family members who expressed understanding and agreement. All questions were answered. Thank you for involving us in the care of your patient. Please call with any questions. I will discuss all the above with Dr. Anthony Quintanilla and make changes as necessary. Subjective Principal diagnosis: AILDA, bradycardia Interval history: S/P PPM insertion yesterday. Pt reports mild chest soreness at site, no other acute complaints. Objective Vital Signs, Last 4 Hours Temp Pulse Resp BP Pulse Ox 08/11/18 10:57 97.7 F 97 20 116/79 93 Vital Signs Temp Pulse Resp BP Pulse Ox 08/11/18 10:57 97.7 F 97 20 116/79 93 08/11/18 07:03 97.6 F 74 18 112/73 93 08/10/18 20:24 97 08/10/18 19:33 97.9 F 98 15 115/73 97 08/10/18 15:00 97.9 F 106 18 122/60 97 Intake and Output 08/10/18 08/11/18 08/11/18 23:59 07:59 15:59 Intake Total 360 / 360 Output Total 900 / 900 Balance -540 / -540 Intake: Oral 360 / 360 Output: Urine 900 / 900 Other: Meal Dinner Percent of Meal Consumed 100% Stool Size Large Stool Consistency loose Stool Color Brown General: Conversant, No Apparent Distress HEENT: Atraumatic, Normocephaly, Mucus Membranes Moist Neck: No JVD, Normal carotid pulses Cardiac: Reg Rate and Rhythm, Normal S1 and S2, No Murmur Lungs: Normal Breath Sounds, No Wheeze, Rales, Rhonchi Neuro: Alert and responsive, No focal deficits noted Abdomen: Soft, Non-Tender Skin: Other (left chest device site healing well. Steri strips intact. No active bleeding, hematoma or ecchysmosis.) Musculoskeletal: No Chest Wall Tenderness Extremities: No Clubbing, No Cyanosis, No Edema, Normal Pulses Results 08/10/18 07:32 08/10/18 07:32 Impressions Chest X-Ray 08/11/18 08:38 IMPRESSION: Mild pulmonary vascular congestion. Low lung volumes. D/ / Celestine Jha MD / Celestine Jha MD Interpreting Provider: Celestine Jha MD Active Medications Acetaminophen (Tylenol) 650 mg PO Q6HR PRN PRN Reason: Pain Stop: 02/04/19 20:08 Last Admin: 08/05/18 20:52 Dose: 650 mg Hydrocodone Bitart/Acetaminophen ([place] 5-325 Mg) 1 tab PO Q6H PRN PRN Reason: Pain Stop: 02/03/19 18:52 Last Admin: 08/10/18 17:46 Dose: 1 tab Alprazolam (Xanax) 0.5 mg PO BID [facility] PRN Reason: Protocol Stop: 02/07/19 21:01 Last Admin: 08/11/18 10:59 Dose: 0.5 mg Alprazolam (Xanax) 0.5 mg PO Q6HR PRN; Protocol PRN Reason: Anxiety Stop: 02/05/19 11:04 Amlodipine Besylate (Norvasc) 5 mg PO DAILY [facility] PRN Reason: Protocol Stop: 02/04/19 14:01 Last Admin: 08/11/18 10:58 Dose: 5 mg Aspirin (Aspirin Ec) 81 mg PO DAILY [facility] Stop: 02/04/19 09:01 Last Admin: 08/11/18 10:59 Dose: 81 mg Atenolol (Tenormin) 25 mg PO DAILY [facility] Stop: 02/10/19 09:01 Last Admin: 08/11/18 11:05 Dose: 25 mg Gabapentin (Neurontin) 600 mg PO HS [facility] Stop: 02/03/19 21:01 Last Admin: 08/10/18 20:14 Dose: 600 mg Heparin Sodium (Porcine) (Heparin) 5,000 unit SQ Q12HCO [facility]IAN Stop: 02/05/19 18:01 Last Admin: 08/11/18 05:11 Dose: 5,000 unit Hydrochlorothiazide (Hydrochlorothiazide) 25 mg PO DAILY [facility] PRN Reason: Protocol Stop: 02/04/19 09:01 Last Admin: 08/11/18 10:59 Dose: 25 mg Naloxone HCl (Narcan) 0.4 mg IVP Q2MIN PRN PRN Reason: SEE COMMENTS Stop: 02/03/19 18:49 Simvastatin (Zocor) 20 mg PO HS [facility]IAN PRN Reason: Protocol Stop: 02/03/19 21:01 Last Admin: 08/10/18 20:14 Dose: 20 mg - Imaging and Cardiology Chest Xray: report reviewed Echo: report reviewed - EKG Interpretation EKG results cardiology: other (12 hr tele AVG HR 88, intermittent atrial/sinus tach noted.) - VTE Reasons for not Prescribing Prophylaxis: Treatment not Indicated - Low risk for VTE Deep Vein Thrombosis/Pulmonary Embolism Present on Admission: No Consult Discharge Plan - Plan Additional Instructions: ACTIVITY: Moderate activity for the next 7 days. No lifting more than 5 pounds ( gallon of milk) for 4-6 weeks. Avoid lifting your arm on the same side as the device for 4 weeks. BATHING /SHOWERING: Do not remove the large bandage over the site for 2 days. Do not allow the device to get wet for 7-10 days. You may bathe/shower, but do not use soap and water on the site. When bathing, keep the site dry by covering with Saran wrap or a towel. WOUND CARE: The white steri-strips will start to peel away and come off after 14 days, or your doctor will remove them after [address] anything into or on top of the incision. Do not use cotton swabs. Do not use any antibiotic ointment or Vitamin E on the site. REMINDERS: You may use electrical devices, such as, microwaves, hair dryers, electric razors, electric blankets, etc. as long as they are in good condition and kept 6 -8 inches away from the device. It is recommended to use cell phones on the opposite side of your device. Notify security personnel at the airport that you have a device before you go through airport security screening. When at places with security monitors, such as a grocery store, do not linger near these monitors. It is fine to walk past them in a normal manner. Refer to your owners manual for more specific directions. CARRY YOUR PACEMAKER/ICD CARD WITH YOU AT ALL TIMES Return to work as instructed per physician Resume driving as instructed per physician Keep all scheduled follow up appointments Resume medications as instructed Contact [facility] ( ) if: You develop excessive bleeding from insertion or wound site not controlled by applying pressure You develop a fever greater than 101 degrees Fahrenheit Your incision becomes reddened at or around the site Your incision develops yellowish or greenish drainage or development of white pimple-like bumps You experience excessive pain You develop swelling in your ankles You experience muscle switching You develop excessive hiccupping If you experience chest pain, shortness of breath, dizziness, or extreme tiredness, stop the activity and rest. Please notify [facility] office if you experience any of these symptoms and they are not relieved by rest please call 911! Referrals: Jose Enrique Collier MD [Primary Care Provider] - 08/18/18 9:15 am
[2018-08-11] MEDS ORDERED: Furosemide 20 MG TABLET PO SCH (11:45)
--- NOTE | 2018-08-11 12:09 | Discharge Summary ---
- NOTES TO OUTPATIENT PROVIDER Notes to Outpatient Provider: Atenolol decreased to 25 daily. Started on amlodipine. Had pacemaker placed. Orders not resulted at time of discharge: Pending orders 08/10/18 07:57 CL Insert Permanent Pacemaker [CL] Routine Date of Encounter: 08/11/18 Time of Encounter: 12:03 - Discharge Diagnosis (1) Bradycardia Priority: Primary Status: Acute (2) ALIDA (acute kidney injury) Priority: Secondary Status: Resolved (3) HTN (hypertension) Priority: Secondary Status: Acute Qualifiers: Hypertension type: essential hypertension Qualified Code(s): I10 - Essential (primary) hypertension (4) Hypokalemia Priority: Secondary Status: Resolved Hospital course: Ms. George is a 83 year old female past history of hypertension was sent by primary care to Hospital deep due to bradycardia was mildly symptomatic. She had a mildly KI on admission which resolved quickly. Patient had decreased to 1 AV block and received pacemaker. Follow-up chest x-ray did not show any complications and showed mild congestion. Her atenolol was decreased from 50 twice a day to 25 daily. Echo showed EF of 60-65, mild hypertrophy if basal septum, mild LVOT, atypical septal motion consistent with bundle branch block. Her Lasix was resumed given the congestion. Vision was discharged home in stable condition. Discharge discussed with: patient, family, nurse, social work, case management, it solutions sales consultant - Time Spent with Patient Total time spent providing and/or coordinating discharge services: Greater than 30 minutes - Discharge Medications Prescriptions: amLODIPine [Norvasc] 5 mg PO DAILY 30 Days #30 tablet Atenolol [Tenormin] 25 mg PO DAILY 30 Days #30 tablet Home Medications: ALPRAZolam [Xanax 0.5 MG Tablet] 0.5 tab PO HS PRN 08/04/18 [History] Amitriptyline [Elavil] 25 - 50 mg PO HS 08/04/18 [History] Aspirin Enteric Coated [Aspirin EC] 81 mg PO DAILY 08/04/18 [History] Biotin 10 mg PO DAILY 08/04/18 [History] Calcium/Magnesium/Zinc [Ctltnzo-Llwqbvrdr-Xqro Tab] 1 tab PO DAILY 08/04/18 [ History] Cyanocobalamin (Vitamin B-12) [Vitamin B12] 1,000 mcg PO DAILY 08/04/18 [History ] Furosemide [Lasix] 20 mg PO DAILY PRN 08/04/18 [History] Gabapentin [Neurontin] 600 mg PO HS 08/04/18 [History] HYDROcodone/Acet 5/325 mg [[place] 5-325 mg] 1 tab PO Q6H PRN 08/04/18 [History] Potassium Chloride [Klor-Con 10] 10 meq PO DAILY 08/04/18 [History] Simvastatin [Zocor] 20 mg PO HS 08/04/18 [History] hydroCHLOROthiazide [Hydrochlorothiazide] 25 mg PO DAILY 08/04/18 [History] Atenolol [Tenormin] 25 mg PO DAILY 30 Days #30 tablet 08/11/18 [Rx] amLODIPine [Norvasc] 5 mg PO DAILY 30 Days #30 tablet 08/11/18 [Rx] Allergies/Adverse Reactions: 3 Allergy/AdvReac Type Severity Reaction Status Date / Time naproxen Allergy Gastrointestinal Verified 10/18/16 13:30 Upset Date of admission: 08/05/18 15:38 Primary care physician: Jose Enrique Collier MD Consults: 08/09/18 11:36 Consult to Electrophysiology (EP) [CONS] Routine Consulting Provider: [facility] Reason for Consult: bradycardia Call Completed: Yes Discharging clinician: Laly Aceves - Constitutional Vitals: Temp Pulse Resp BP Pulse Ox 97.7 F 97 20 116/79 93 08/11/18 10:57 08/11/18 10:57 08/11/18 10:57 08/11/18 10:57 08/11/18 10:57 General appearance: Present: A&O X 3, no acute distress, answers questions appropriately Exam: Gen: Alert, awake, in no acute distress. Obese Respiratory exam: CTAB. no accessory muscle use, rales, rhonchi, wheezes Cardiovascular exam: RRR, +S1, +S2. no murmur, gallop, rubs. Dressing in place on left chest with recent PPM placement. Dressing not soaked. GI/Abdominal exam: Non-tender, Non-distended, normal bowel sounds, soft, no peritoneal signs. Extremities exam: full ROM, no pedal edema, warm, pulses palpable and symmetrical in both Upper and lower extremities. no calf tenderness, cyanotic Neurological exam: CN II-XII intact, AO X3, no focal deficits. Skin exam: No skin rash, ulcer, purpura or ecchymosis. - Patient Status Disposition: Home, Self-Care Condition: Fair - Discharge Instructions Follow Up With: Jose Enrique Collier MD [Primary Care Provider] - 08/18/18 9:15 am Additional Instructions: ACTIVITY: Moderate activity for the next 7 days. No lifting more than 5 pounds ( gallon of milk) for 4-6 weeks. Avoid lifting your arm on the same side as the device for 4 weeks. BATHING /SHOWERING: Do not remove the large bandage over the site for 2 days. Do not allow the device to get wet for 7-10 days. You may bathe/shower, but do not use soap and water on the site. When bathing, keep the site dry by covering with Saran wrap or a towel. WOUND CARE: The white steri-strips will start to peel away and come off after 14 days, or your doctor will remove them after [address] anything into or on top of the incision. Do not use cotton swabs. Do not use any antibiotic ointment or Vitamin E on the site. REMINDERS: You may use electrical devices, such as, microwaves, hair dryers, electric razors, electric blankets, etc. as long as they are in good condition and kept 6 -8 inches away from the device. It is recommended to use cell phones on the opposite side of your device. Notify security personnel at the airport that you have a device before you go through airport security screening. When at places with security monitors, such as a grocery store, do not linger near these monitors. It is fine to walk past them in a normal manner. Refer to your owners manual for more specific directions. CARRY YOUR PACEMAKER/ICD CARD WITH YOU AT ALL TIMES Return to work as instructed per physician Resume driving as instructed per physician Keep all scheduled follow up appointments Resume medications as instructed Contact [facility] ( ) if: You develop excessive bleeding from insertion or wound site not controlled by applying pressure You develop a fever greater than 101 degrees Fahrenheit Your incision becomes reddened at or around the site Your incision develops yellowish or greenish drainage or development of white pimple-like bumps You experience excessive pain You develop swelling in your ankles You experience muscle switching You develop excessive hiccupping If you experience chest pain, shortness of breath, dizziness, or extreme tiredness, stop the activity and rest. Please notify [facility] office if you experience any of these symptoms and they are not relieved by rest please call 911! - Diet and Activity Activity: resume usual activities as tolerated - VTE Reasons for not Prescribing Prophylaxis: Treatment not Indicated - Low risk for VTE Deep Vein Thrombosis/Pulmonary Embolism Present on Admission: No
== END 2018-08-11 14:42 | disposition home or self-care (01) | DRG 243 ==
LOC: 2NENU 16:37 → EMEROOARM 16:37 → SUATTDRO 20:04 → 2NENU 20:49 → SUATTDRO 08-05 15:38
PROVIDERS: ADMIT Internal Medicine; ATTEND Internal Medicine